=== PATIENT | male | born 1940 | race Caucasian/White ===

== ENCOUNTER 2020-10-29 08:54 | Outpatient (CLI) | payer OTHER, SELFPAY ==
--- NOTE | 2020-10-29 09:04 | ECHO_ITS ---
Patient Info Name: Luke Lawrence Age: 80 years : 1940 Gender: Male Ht: 66 in Wt: 190 lbs BSA: 2.03 m2 HR: 81 bpm BP: 128 / 73 mmHg Heart Rhythm: Sinus Rhythm Technical Quality: Fair Exam Date: 10/29/2020 9:17 AM Exam Location: [facility] Pulmonary Patient Status: Outpatient Admit Date: 10/29/2020 Staff Ordering Physician: Jani Buck APRN Train Master: Kathleen Castillo RDCS Attending Provider: Jani Buck APRN Exam Type: CA echo doppler color flow Study Info Indications R06.00 - Dyspnea, unspecified Complete two-dimensional, color flow and Doppler transthoracic echocardiogram is performed. Summary 1. Complete two-dimensional, color flow and Doppler transthoracic echocardiogram is performed. 2. Left ventricular chamber dimension is normal. 3. Left ventricular systolic function is normal, estimated at 55-60%. 4. The left ventricular diastolic function is grade I diastolic dysfunction. 5. E/e' 12 is mildly elevated. 6. There is moderate aortic valve sclerosis. 7. There is mild aortic valve regurgitation. 8. No pulmonary hypertension, estimated pulmonary arterial systolic pressure is 33 mmHg. Left Ventricle E/e' 12 is mildly elevated. Left ventricular chamber dimension is normal. Left ventricular systolic function is normal, estimated at 55-60%. The left ventricular diastolic function is grade I diastolic dysfunction. Right Ventricle Right ventricular chamber dimension is not well visualized. Left Atria Left atrial chamber dimension is normal. Right Atria Right atrial chamber dimension is normal. Aortic Valve The aortic valve is trileaflet. There is moderate aortic valve sclerosis. There is no aortic valve stenosis. There is mild aortic valve regurgitation. Pulmonic Valve There is no pulmonic regurgitation. Mitral Valve There is no mitral valve stenosis. There is no mitral valve regurgitation. Tricuspid Valve There is no tricuspid valve regurgitation. No pulmonary hypertension, estimated pulmonary arterial systolic pressure is 33 mmHg. Pericardium/Pleural There is no pericardial effusion. Inferior Vena Cava Normal inferior vena cava with >50% collapse upon inspiration consistent with normal right atrial pressure, 5 mmHg. Aorta The aortic root size at the sinus of Valsalva is normal. Left Ventricular Outflow Tract Name Value Normal LVOT 2D LVOT Diameter 1.9 cm LVOT Doppler LVOT Peak Gradient 3 mmHg LVOT Mean Gradient 2 mmHg LVOT VTI 20 cm LVOT VTI/AV VTI Ratio 0.6 LVOT Stroke Volume 56 ml LVOT CO 3.9 l/min LVOT CI 1.9 l/min/m2 Pulmonic Valve Name Value Normal RVOT Doppler RVOT P
== END 2020-10-29 08:55 | disposition home or self-care (01) ==
PROVIDERS: PCP Internal Medicine; Visit Provider Nurse Practitioner
DX: R06.00 Dyspnea, unspecified (principal); R60.9 Edema, unspecified; I35.1 Nonrheumatic aortic (valve) insufficiency
CPT/HCPCS: 93306

== ENCOUNTER 2022-04-24 10:07 | Outpatient (CLI) | payer OTHER, SELFPAY ==
--- NOTE | ~2022-04-24 | XR_ITS ---
XR thoracic spine 3V 04/24/2022 10:38 Indication: Chronic mid back pain. Procedure: 3 views of the thoracic spine Comparison: No prior studies for comparison. Findings: There is mild levocurvature of the thoracic spine. There are chronic healed right eighth an d ninth rib fractures. There is degenerative disc disease at most thoracic levels of the mid and lowe r thoracic spine. There are bridging osteophytes at multiple levels. There is atherosclerosis of the aorta. No acute fracture or traumatic malalignment. Impression: 1: Moderate thoracic spondylosis with levoscoliosis. Reviewed, dictated and finalized at location A. Impression: 1: Moderate thoracic spondylosis with levoscoliosis.
--- NOTE | ~2022-04-24 | XR_ITS ---
XR lumbar spine 2-3V 04/24/2022 10:38 Indication: Low back pain Procedure: 3 views of the lumbar spine Comparison: No prior studies for comparison. Findings: There is disc narrowing at all lumbar levels. There are prominent marginal osteophytes at m ost levels. There is facet hypertrophy at L5-S1. No acute fracture or traumatic malalignment. There i s atherosclerosis of the aorta. There are calcifications in the left abdomen, possibly renal stones. Osteopenia. Impression: 1: Moderate-severe lumbar spondylosis. 2: Possible left nephrolithiasis. Reviewed, dictated and finalized at location A. Impression: 1: Moderate-severe lumbar spondylosis. 2: Possible left nephrolithiasis.
== END 2022-04-24 10:08 | disposition home or self-care (01) ==
PROVIDERS: PCP Internal Medicine; Visit Provider Internal Medicine
DX: M47.894 Other spondylosis, thoracic region (principal); M47.896 Other spondylosis, lumbar region
CPT/HCPCS: 72072; 72100

== ENCOUNTER → 2022-06-30 15:46 | Outpatient (CLI) | payer OTHER, SELFPAY ==
--- NOTE | ~2022-06-30 | XR_ITS ---
EXAMINATION: XR chest 2V 06/30/2022 16:11 INDICATION: Cough PROCEDURE: 2 view chest COMPARISON: 12/30/2018 FINDINGS: The lungs are clear. The cardiomediastinal silhouette is within normal limits. There are no pleural effusions. There is no pneumothorax suspected. There are calcified granulomas in the rig ht mid and lower thorax. There are healed right lower rib fractures. IMPRESSION: 1: NO ACUTE CARDIOPULMONARY DISEASE. Reviewed, dictated and finalized at location A. OFF WORKER
== END ==
PROVIDERS: PCP Internal Medicine; Visit Provider Internal Medicine
DX: R05.9 Cough, unspecified (principal)
CPT/HCPCS: 71046

== ENCOUNTER 2022-12-02 14:40 | Inpatient (IN) | payer OTHER, SELFPAY ==
[2022-12-02] VITALS (9 sets, daily range): BP systolic 95–127; BP diastolic 42–61; PULSE 51–98; RESP 16–20; TEMP 36.1–36.7; O2SAT 91–100
--- NOTE | ~2022-12-02 | XR_ITS ---
Portable chest x-ray Comparison: 06/30/2022 Clinical History: STEMI Findings: Lungs are clear, without focal consolidation or pleural effusion. Cardiomediastinal silho uette is stable. Bones and soft tissues are unremarkable. Impression: Clear lungs. Reviewed, dictated and finalized at location . Impression: Clear lungs.
--- NOTE | ~2022-12-02 | US_ITS ---
EXAMINATION: US venous doppler [facility] DATE: 12/03/2022 16:52 INDICATION: HISTORY OF DVT . TECHNIQUE: Grayscale images without and with compression and Doppler images of the bilateral lower ex tremity veins were obtained. COMPARISON: 12/19/2018 FINDINGS: Chronic-appearing nonocclusive filling defects in the right profunda femoral, superficial femoral, an d popliteal veins. The right common femoral vein, peroneal vein, posterior tibial veins, gastrocnemiu s vein, and greater saphenous vein are patent. Chronic appearing nonocclusive filling defects in the left common femoral, profunda femoral, and supe rficial femoral veins. The left popliteal vein, peroneal vein, posterior tibial veins, gastrocnemius vein, and greater saphenous vein are patent. IMPRESSION: 1. Chronic appearing nonocclusive deep venous thrombi in the bilateral lower extremities, as detaile d above. 2. No evidence of acute deep venous thrombosis. Reviewed, dictated and finalized at location K. IMPRESSION: 1. Chronic appearing nonocclusive deep venous thrombi in the bilateral lower e xtremities, as detailed above. 2. No evidence of acute deep venous thrombosis.
--- NOTE | 2022-12-02 14:48 | ECG_ITS ---
Measurements Intervals [place] Rate: 49 P: MO: 0 QRS: 96 QRSD: 170 T: 44 QT: 476 QTc: 433 Interpretive Statements JUNCTIONAL ESCAPE RHYTHM RIGHT BUNDLE BRANCH BLOCK INFERIOR ST ELEVATION MYOCARDIAL INFARCT- ACUTE CONSIDER POSTERIOR INFARCT- ACUTE ABNORMAL ECG NO PREVIOUS ECG AVAILABLE FOR COMPARISON Electronically Signed On 12-02-2022 15:50:56 CDT by Anthony Floyd D.O.
[2022-12-02 15:19] LABS: Basophils Absolute Auto 0.1 K/mm3 (0.0-0.1); Basophils Percent Auto 0.8 % (0.2-1.2); Eosinophils Percent Auto 0.3 % (0-4.4); Hematocrit 45.9 % (42.0-52.0); Hemoglobin 14.6 g/dL (14.0-18.0); Immature Granulocyte Absolute 0.06 K/mm3 (0.00-0.031); Immature Granulocyte Percent A 0.5 % (0-0.5); Lymphocytes Absolute Auto 2.57 K/mm3 (0.9-3.2); Lymphocytes Percent Auto 21.5 % (18.3-44.2); Mean Corpuscular HGB Conc 31.8 g/dl (32-36); Mean Corpuscular Hemoglobin 27.3 pg (26-34); Monocytes Absolute Auto 0.8 K/mm3 (0.1-0.6); Neutrophils Absolute Auto 8.4 K/mm3 (1.3-6.7); Neutrophils Percent Auto 69.9 % (45.5-73.1); Platelet Count Result 323 k/mm3 (150-375); Red Blood Count 5.34 M/mm3 (4.6-6.20); Red Cell Distribution Width 13.5 % (11.5-14.5)
--- NOTE | 2022-12-02 15:22 | ED.WEAKNESS ---
HPI - Weakness General Chief complaint: Weakness Stated complaint: weakness Time Seen by Provider: 12/02/22 14:48 History of Present Illness HPI Narrative: Patient here with daughter, this morning he had been feeling out of sorts and woozy, with some chest pain/pressure to his left chest. He was hoping that it would go away, but he was still uncomfortable in the afternoon, and called his daughter. She told him to stay on the phone until she got there, and when she arrived, she noted that he had been unable to get to the bathroom on time, and was extremely diaphoretic patient currently is still endorsing chest discomfort and dizziness, wanting to pass out. History of hypertension and diabetes, blood clots on warfarin. Related Data Allergies Allergy/AdvReac Type Severity Reaction Status Date / Time No Known Allergies Allergy Verified 09/22/22 12:48 Review of Systems Review of Systems: CONST: Generalized weakness HEENT: No sore throat C/V: chest pain RESP: Some difficulty breathing GI: Some mild nausea but no abdominal pain : No dysuria. M/S: No joint pain. SKIN: No rash. NEURO: Lightheaded PSYCH: [No depression] [facility] Past Medical History Medical History (Updated 12/02/22 @ 15:44 by Irma Lee MD) Body mass index (bmi) 29.0-29.9, adult Deep vein thrombophlebitis of lower leg Deep vein thrombosis Diabetes type 2, controlled Nephrolithiasis SOB (shortness of breath) Family History Family History Sibling Acute myocardial infarction Family history of malignant neoplasm Patient's brother is in good health Father Family history unknown Mother Family history unknown Other Acute myocardial infarction Social History Social History Smoking status: Former smoker Smoking end date: 08/02/77 Alcohol intake: never Substance use: never Substance use type: does not use Lack of Transportation: No Lack of Food: Never True Current Housing: I Have Housing Concerned About Future Housing: No Difficulty Paying Gas/Electric Bills: No Difficulty Paying for Meds: No Currently Unemployed: No Education: High School Diploma/GED Difficulty w/ Childcare or Family Care: No Exam Narrative: EXAMINATION OF ORGAN SYSTEMS/BODY AREAS: Constitutional: Vital signs per nursing GENERAL: Appears extremely sleepy HEAD: Normal with no signs of head trauma. EYES: EOMI, conjunctiva normal ENT: Speaking slowly and not clearly LUNGS: Nonlabored breathing. HEART: Slightly bradycardic ABD: [Soft], [nontender to palpation] EXT: Normal range of motion SKIN: [No rashes or lesions.] NEURO: [Alert and oriented x 3. No gross focal sensory or strength deficits. NIHSS 0] PSYCH: Slow, tired affect Course Vital Signs Vital signs: Vital Signs Temperature 97 F L 12/02/22 15:04 Pulse Rate 51 L 12/02/22 15:04 Respiratory Rate 18 12/02/22 15:04 Blood Pressure 114/52 L 12/02/22 15:04 Pulse Oximetry 92 12/02/22 15:04 Oxygen Delivery Room Air 12/02/22 15:04 Temperature 97 F L 12/02/22 15:04 Pulse Rate 51 L 12/02/22 15:04 Respiratory Rate 18 12/02/22 15:04 Blood Pressure 114/52 L 12/02/22 15:04 Pulse Oximetry 92 12/02/22 15:04 Oxygen Delivery Room Air 12/02/22 15:04 MDM - Weakness MDM Narrative Medical decision making narrative: ED COURSE AND MEDICAL DECISION MAKIN-year-old male presenting with generalized weakness, presyncope, chest pain. My differential includes infection, cardiac abnormality including arrhythmias or ACS, CVA or dissection. Exam here notable for tired appearing patient who seemed to be slurring his speech slightly vs just be very tired, NIH stroke scale is 0 otherwise. EKG: Performed at 1501 and interpreted by me. ESTHER in inferior leads with reciprocal changes, rate 49. Right axis. MA n/a. QRS duration normal. QTc normal. Legislative Director immed
[2022-12-02 15:29] LABS: Albumin Level 4.4 g/dL (3.5-5.1); Alkaline Phosphatase 70 U/L (38-126); Anion Gap 11 mmol/L (8-16); Aspartate Amino Transferase 28 U/L (17-59); Bilirubin,Total 0.4 mg/dL (0.2-1.3); Blood Urea Nitrogen 16 mg/dL (9-20); Calcium 9.5 mg/dL (8.4-10.2); Carbon Dioxide 26 mmol/L (22-30); Chloride 99 mmol/L (98-107); Cholesterol 182 mg/dL (0-200); Estimated CRCL calculation 38 ml/min; Estimated Glomerular Filt Rate 48; Glucose 198 mg/dL (65-110); HDL Direct 49 mg/dL; Partial Thromboplastin Time 33.1 SECONDS (22.3-36.8); Potassium 3.5 mmol/L (3.4-5.0); Sodium 136 mmol/L (137-145); Triglycerides 133 mg/dL (<150)
[2022-12-02 15:32] LABS: INR 1.6; Prothrombin Time 20.4 Seconds (11.1-14.7)
[2022-12-02] MEDS: SODIUM CHLORIDE 0.9% IV 1,000 ML 30 ML IV CONT (15:32)
[2022-12-02 15:40] LABS: Alanine Aminotransferase 42 U/L (6-50)
[2022-12-02 15:42] LABS: LDL Cholesterol Direct 104 mg/dL
[2022-12-02 15:45] LABS: Troponin I 0.029 ng/mL (0.000-0.034)
--- NOTE | 2022-12-02 16:27 | PM.IMHP ---
H&P: HPI History of Present Illness Date/Time: 12/02/22 16:27 Chief Complaint: Chest pain for approximately 12 hours Narrative: 82-year-old male with past medical history of hypertension, type 2 diabetes mellitus, history of DVT on anticoagulation with warfarin. Patient presented to [facility] Emergency Room with complaints of chest pain that started about 12 hours ago. His symptoms were associated with mild shortness of breath and an episode of dizziness. present EKG which I personally evaluated showed junctional rhythm, heart rate 49 beats per minute, ST elevation in the inferior leads with reciprocal ST depression. Patient was emergently taken to the cardiac catheterization lab and coronary angiogram showed 100% occlusion of proximal RCA -infarct related vessel. He underwent primary PCI/ CONCETTA x2 proximal-mid RCA. Left coronary angiogram showed 60-70% stenosis in the mid LAD; and 70-80% stenosis in the proximal -mid LCX. Left ventriculogram showed hyperdynamic LV systolic function. Patient was hypotensive in the golf course laborer, and was initiated on IV fluid and dopamine. He was chest pain-free after completion of PCI. Review of Systems Review of Systems: General: Negative for fever, chills, fatigue Psychological: Negative for anxiety, depression Ophthalmic: negative for loss of vision ENT: Negative for epistaxis, headaches Allergy and immunology: Negative for hives, nasal congestion Hematologic and lymphatic: Negative for overt bleeding problems Endocrine: Negative for hot flashes, palpitations Respiratory: Positive for shortness of breath Cardiovascular: positive for chest pain, presyncope Gastrointestinal: Negative for abdominal pain, nausea, vomiting, hematochezia Musculoskeletal: Negative for myalgia, joint pains Neurological: Negative for weakness Dermatological: Negative for rash, skin discoloration REPLACED BY [facility] Past Medical History Medical History (Updated 12/02/22 @ 15:44 by Irma Lee MD) Body mass index (bmi) 29.0-29.9, adult Deep vein thrombophlebitis of lower leg Deep vein thrombosis Diabetes type 2, controlled Nephrolithiasis SOB (shortness of breath) Family History Family History Sibling Acute myocardial infarction Family history of malignant neoplasm Patient's brother is in good health Father Family history unknown Mother Family history unknown Other Acute myocardial infarction Social History Social History Smoking status: Former smoker Smoking end date: 08/02/77 Alcohol intake: never Substance use: never Substance use type: does not use Lack of Transportation: No Lack of Food: Never True Current Housing: I Have Housing Concerned About Future Housing: No Difficulty Paying Gas/Electric Bills: No Difficulty Paying for Meds: No Currently Unemployed: No Education: High School Diploma/GED Difficulty w/ Childcare or Family Care: No Meds Home Medications and Allergies Home Medications Medication Instructions Recorded Confirmed Type amlodipine 10 mg tablet 10 mg PO DAILY #90 tabs 06/19/22 09/08/22 Rx hydrochlorothiazide 12.5 mg tablet 12.5 mg PO DAILY #90 tabs 09/08/22 09/08/22 Rx metformin 500 mg tablet 500 mg PO BID #180 tabs 09/08/22 09/08/22 Rx warfarin 5 mg tablet See Rx Instructions .Route 10/26/22 Rx .COMPLEX #45 tabs lisinopril 20 mg tablet See Rx Instructions .Route 11/04/22 Rx .COMPLEX #180 tabs Allergies Allergy/AdvReac Type Severity Reaction Status Date / Time No Known Allergies Allergy Verified 09/22/22 12:48 Vital Signs Vital Signs - 24 hr 12/02/22 15:04 12/02/22 15:30 Temperature 36.1 C L Pulse Rate 51 L 52 L Respiratory Rate 18 16 Blood Pressure 114/52 L 95/42 L Pulse Oximetry 92 93 Oxygen Delivery Room Air Exam Narrative: PHYSICAL EXAMINATION: GENERAL: Alert, oriented, mild distr
--- NOTE | 2022-12-02 16:37 | WPDCARDPROC ---
Cardiac Cath Procedure Note Date of procedure:: 12/02/22 Performing physician:: Gonzalo Pennington MD Procedure Procedure note:: CARDIAC CATHETERIZATION AND PERCUTANEOUS CORONARY INTERVENTION REPORT DATE OF PROCEDURE: 12/02/2022 INDICATION FOR PROCEDURE: acute coronary syndrome-inferior ST-elevation myocardial infarction BRIEF CLINICAL HISTORY:82-year-old male with past medical history of hypertension, type 2 diabetes mellitus, history of DVT on anticoagulation with warfarin. Patient presented to [facility] Emergency Room with complaints of chest pain that started about 12 hours ago.? His symptoms were associated with mild shortness of breath and an episode of dizziness. ? present EKG which I personally evaluated showed junctional rhythm, heart rate 49 beats per minute, ST elevation in the inferior leads with reciprocal ST depression.? Patient was emergently taken to the cardiac catheterization lab. PROCEDURES PERFORMED: 1. Left heart catheterization- Selective left and right coronary angiogram; left ventriculogram and hemodynamic assessment 2. Percutaneous coronary intervention- 1) balloon angioplasty and stenting of totally occluded proximal -mid RCA using 2 resolute juan diego zotarolimus eluting stents ( 4.0 x 34 mm, 3.5 x 12 mm) in an overlapping fashion with orthodoxy of flow; 2) intravascular ultrasound -IVUS of proximal-mid RCA 3. Deployment of Mynx vascular closure device 4. Moderate sedation-CPT code 28288 MODERATE SEDATION: Midazolam 1 mg; fentanyl 25 mcg. Start time 1542 , Stop time 1619 ; Total [id number] time 37 minutes; RN was trained observer for moderate sedation. ACCESS SITE: Right common femoral artery PROCEDURE NOTE: Patient was emergently brought to catheterization lab and prepped and draped in a usual sterile manner. After local anesthesia with lidocaine, right common femoral artery access was taken with micropuncture needle followed by insertion of a 6 Malagasy sheath. Selective left and right coronary angiogram was performed using 5 Malagasy JL4 diagnostic and JR4 guide catheters respectively. Orthogonal views were taken. After completion of PCI, a 5 Malagasy pigtail catheter was advanced in the LV cavity and was flushed with normal saline. LV pressure measurement was performed. After this, left ventriculogram was performed. The catheter was flushed again, and gradient across the aortic valve was measured on the pullback of the catheter. FINDINGS: LEFT MAIN CORONARY: large caliber, short vessel, mild narrowing in the mid segment. The vessel trifurcates into LAD, ramus intermedius and left circumflex branches. LEFT ANTERIOR DESCENDING ARTERY: Medium caliber vessel, about 60-70% stenosis seen in the mid segment. The vessel tapers distally and reaches LV apex. Major diagonal branch is a medium caliber vessel with mild narrowing in the proximal segment. RAMUS INTERMEDIUS: Medium caliber vessel, mild plaque in the proximal segment. LEFT CIRCUMFLEX ARTERY: Medium caliber vessel, about 70-80% stenosis in the proximal-mid segment. The vessel continues as OM branch. RIGHT CORONARY ARTERY: Large caliber vessel, 100% thrombotic occlusion in the proximal segment-infarct related vessel. Mild diffuse plaque is seen in the remainder of the mid and distal segment. The vessel gives rise to medium-sized PDA branch and smaller caliber PLV branch. LEFT VENTRICULOGRAM: Frequent ventricular ectopy was seen during left ventriculogram, ejection fraction more than 70%. LVEDP 14 mmHg. HEMODYNAMIC ASSESSMENT: Opening pressure 90/40 mmHg , closing pressure 72/33 mmHg , LVEDP mmHg 14 mmHg; no significant gradient across aortic valve on the pullback of pigtail catheter. INTERVENTION REPORT: RCA ostium was selectively engaged using 6 Malagasy JR4 guide catheter. Patient received aspirin and loading dose of ticagrelor in the laborer high density press. Bivalirudin was used for personal and evaluation. The 100% occlusion in the
[2022-12-02] MEDS: SODIUM CHLORIDE 0.9% IV 1,000 ML 125 ML IV CONT (17:44)
[2022-12-02] MEDS: PANTOPRAZOLE SODIUM IV 40 MG VIAL IV PUSH (18:35)
[2022-12-02] MEDS: ASPIRIN 81 MG CHEWABLE TABLET PO (18:35)
[2022-12-02] MEDS: TICAGRELOR 90 MG TABLET 180 MG PO (18:35)
[2022-12-02 19:08] LABS: Appearance Urine Clear (Clear); Bacteria Urine None Seen /hpf; Bilirubin Urine Negative (Negative); Blood Urine 3+ (Negative); Color Urine Yellow (Yellow); Glucose Urine UA Trace mg/dL (Negative); Ketones Urine Negative (Negative); Leukocyte Esterase Ur Negative LEU/UL (Negative); Nitrate Urine Negative (Negative); Non Pathogenic Casts 0-2; Protein Urine Negative (Negative); RBC Urine >100 /hpf (0-2); Specific Grav Ur 1.014 (1.001-1.035); Squamous Epithelial Cell Urine None seen /hpf (Few); WBC Urine 0-5 /hpf
[2022-12-02 19:09] LABS: Add Urine Microscopic? YES
--- NOTE | 2022-12-02 22:00 | ADMGEN ---
This patient, Luke Lawrence, was admitted to Intensive Care Unit-6 on 12/02/22 at 1645. Patient/family oriented to hospital policies and general routines including ID bracelet, bed and alarms, visiting hours, pain management, procedures, bathroom and other care routines, personal items, smoking policy, room service/diet, and visiting hours. Information on how to activate the Rapid Response Team has been discussed. Patient/Family are encouraged to report perceived risks to care and to ask questions if they do not understand what they are told or what they should do.
[2022-12-03] VITALS (15 sets, daily range): BP systolic 79–130; BP diastolic 50–107; PULSE 72–101; RESP 18–23; TEMP 36.4–36.8; O2SAT 91–98
--- NOTE | 2022-12-03 | ECHO_ITS ---
Patient Info Name: Luke Lawrence Age: 82 years : 1940 Gender: Male Ht: 71 in Wt: 184 lbs BSA: 2.05 m2 HR: 110 bpm BP: 110 / 64 mmHg Heart Rhythm: Sinus Rhythm Technical Quality: Poor Exam Date: 12/03/2022 2:16 PM Exam Location: [facility] Pulmonary Patient Status: Inpatient Admit Date: 12/02/2022 Staff Ordering Physician: Valencia Law MD (aleah/ann) Grit Blaster: Adriane Gustafson RDCS Attending Provider: Valencia Law MD (aleah/ann) Referring Physician: Thanh ANN; Exam Type: CA echo dop color flow w con Study Info Indications - S/P STEMI Complete two-dimensional, color flow and Doppler transthoracic echocardiogram is performed with contrast to opacify the left ventricle and to improve the deliniation of the left ventricle endocardial borders. Contrast/Agitated Saline Contrast/Ag. Saline: Definity Amount: 2.00 ml Administered By: Adriane Gustafson [facility] Existing IV Access: Yes IV Access Condition: patent with no signs of infiltration Reason for Poor Study: poor echocardiographic windows Summary 1. Technically difficult study with limited views. 2. Left ventricular chamber dimension is normal. 3. Left ventricular systolic function is normal, estimated at 60-65%. 4. The left ventricular diastolic function is grade I diastolic dysfunction. 5. There is moderate aortic valve calcification. 6. The mitral valve annulus is severely calcified. 7. There is mild mitral valve regurgitation. Left Ventricle Left ventricular chamber dimension is normal. Left ventricular systolic function is normal, estimated at 60-65%. There is no increased left ventricular wall thickness. The left ventricular diastolic function is grade I diastolic dysfunction. Right Ventricle Right ventricular chamber dimension is not well visualized. Left Atria Left atrial chamber dimension is not well visualized. Right Atria Right atrial chamber dimension is not well visualized. Aortic Valve The aortic valve is not well visualized. There is no aortic valve stenosis. There is no aortic valve regurgitation. There is moderate aortic valve calcification. Pulmonic Valve The pulmonic valve is not well visualized. Mitral Valve There is mild mitral valve regurgitation. The mitral valve annulus is severely calcified. Tricuspid Valve There is trace tricuspid valve regurgitation. Pericardium/Pleural There is trivial pericardial effusion. Aorta The aortic root size at the sinus of Valsalva is normal. Left Ventricular Outflow Tract Name Value Normal LVOT 2D LVOT Diameter 1.99 cm LVOT Doppler LVOT Peak Gradient 5 mmHg LVOT Mean Gradient 4 mmHg LVOT VTI 23.73 cm LVOT VTI/AV VTI Ratio 0.77 LVOT Stroke Volume 73.60 ml LVOT CO 17.45 l/min LVOT CI 8.49 L/min/m2 Pulmonic Valve Name Value Normal
--- NOTE | 2022-12-03 00:48 | PC.NURSE ---
1900 Dopamine at 10mcg/kg blood pressure WNL 2315 Dopamine at 5mcg/kg blood pressure WNL 0045 Dopamine off - blood pressure remains WNL
[2022-12-03] MEDS: DOPamine 400 MG/D5W 250 ML 400 MG/250 ML BAG 15.73 MG IV CONT (01:32)
[2022-12-03 04:39] LABS: Basophils Percent Auto 0.2 % (0.2-1.2); Eosinophils Percent Auto 0.1 % (0-4.4); Hematocrit 44.1 % (42.0-52.0); Hemoglobin 13.9 g/dL (14.0-18.0); Immature Granulocyte Absolute 0.03 K/mm3 (0.00-0.031); Immature Granulocyte Percent A 0.2 % (0-0.5); Immature Platelet Fraction Pct 1.9 % (0.9-11.2); Lymphocytes Absolute Auto 1.48 K/mm3 (0.9-3.2); Lymphocytes Percent Auto 11.3 % (18.3-44.2); Mean Corpuscular HGB Conc 31.5 g/dl (32-36); Mean Corpuscular Hemoglobin 27.2 pg (26-34); Mean Corpuscular Volume 86.3 fl (80-100); Mean Platelet Volume 8.8 fl (7.4-10.4); Monocytes Absolute Auto 1.1 K/mm3 (0.1-0.6); Neutrophils Absolute Auto 10.5 K/mm3 (1.3-6.7); Neutrophils Percent Auto 80.2 % (45.5-73.1); Platelet Count Result 258 k/mm3 (150-375); Red Blood Count 5.11 M/mm3 (4.6-6.20); Red Cell Distribution Width 13.6 % (11.5-14.5); White Blood Count 13.1 K/mm3 (4.5-10.0)
[2022-12-03 05:24] LABS: Platelet Estimate Adequate (Adequate)
[2022-12-03 05:25] LABS: Schistocytes None Seen (NORMAL)
[2022-12-03 08:14] LABS: Glucose Point of Care 181 mg/dl (65-105)
[2022-12-03] MEDS: ATORVASTATIN 40 MG TABLET 80 MG PO (08:16)
[2022-12-03] MEDS: TICAGRELOR 90 MG TABLET PO ×2 (08:16→20:40)
[2022-12-03] MEDS: ASPIRIN 81 MG ENTERIC TABLET PO (08:34)
[2022-12-03] MEDS: hetaSTARCH 6%/NACL 500 ML 250 ML IV CONT (09:06)
--- NOTE | 2022-12-03 11:16 | ECG_ITS ---
Measurements Intervals [place] Rate: 85 P: 70 HI: 149 QRS: 66 QRSD: 142 T: -20 QT: 410 QTc: 489 Interpretive Statements SINUS RHYTHM RIGHT BUNDLE BRANCH BLOCK ABNORMAL ECG COMPARED TO ECG 12/02/2022 15:01:19 SINUS RHYTHM NOW PRESENT Electronically Signed On 12-03-2022 15:07:19 CDT by Anthony Floyd D.O.
[2022-12-03 12:02] LABS: Glucose Point of Care 191 mg/dl (65-105)
--- NOTE | 2022-12-03 12:08 | PM.PNCARD ---
Progress Note: A&P Assessment and Plan (1) ST elevation (STEMI) myocardial infarction: Code(s): I21.3 - ST elevation (STEMI) myocardial infarction of unspecified site Status: Acute Assessment and Plan: 82-year-old male with past medical history of hypertension, type 2 diabetes mellitus, history of DVT on anticoagulation with warfarin. Patient presented with inferior NC. He is status post primary PCI / CONCETTA times 2 with methodist of flow in the RCA. Dual antiplatelet therapy with aspirin and ticagrelor. High-dose statin Initially required Dopamine upon presentation due to junctional bradycardia, however, now in sinus rhythm. Will stop Dopamine and monitor rhythm closely on tele. If he remains in sinus, will plan to start low-dose beta ramin. Patient has significant disease in the mid LAD and proximal-mid LCX, which can be intervened in a staged fashion in near future. Will have patient follow up with Dr. Pennington. Patient tells me that he had previously tried Xarelto in the past instead of Warfarin, but NOACs are too expensive for him, and therefore, he was put back on Warfarin. He states he was told he should not stop his anticoagulation and should remain on it long-term. Given this, will plan to keep patient on ASA + Brilinta + Warfarin for 1 month. After 1 month, drop the ASA, and continue with Brilinta and Warfarin. Echo is pending. Referral for cardiac rehab placed. (2) Chronic anticoagulation: Code(s): Z79.01 - ferry terminal supervisor (current) use of anticoagulants Status: Acute Assessment and Plan: Patient tells me that he had previously tried Xarelto in the past instead of Warfarin, but NOACs are too expensive for him, and therefore, he was put back on Warfarin. He states he was told he should not stop his anticoagulation and should remain on it long-term. Given this, will plan to keep patient on ASA + Brilinta + Warfarin for 1 month. After 1 month, drop the ASA, and continue with Brilinta and Warfarin. (3) Essential hypertension: Code(s): I10 - Essential (primary) hypertension Status: Acute Assessment and Plan: Cr 1.4 on presentation, will hold his HCTZ and Lisinopril for now and monitor his renal function. Restart Amlodipine. Subjective Date/time seen: 12/03/22 12:08 Interval history: Reason for visit: Acute inferior STEMI HPI: 82-year-old male with past medical history of hypertension, type 2 diabetes mellitus, history of DVT on anticoagulation with warfarin. Patient presented to [facility] Emergency Room with complaints of chest pain that started about 12 hours ago.? His symptoms were associated with mild shortness of breath and an episode of dizziness. ? present EKG which I personally evaluated showed junctional rhythm, heart rate 49 beats per minute, ST elevation in the inferior leads with reciprocal ST depression.? Patient was emergently taken to the cardiac catheterization lab and coronary angiogram showed 100% occlusion of proximal RCA -infarct related vessel.? He underwent primary PCI/ CONCETTA x2 proximal-mid RCA.? Left coronary angiogram showed? 60-70% stenosis in the mid LAD; and 70-80% stenosis in the proximal -mid LCX.? Left ventriculogram showed hyperdynamic LV systolic function.? Patient was hypotensive in the rn labor and delivery, and was initiated on IV fluid and dopamine.? He was chest pain-free after completion of PCI. Date of service 12/03: No acute events overnight. On 2.5 of Dopamine, in sinus rhythm on tele with HR in the 80s-90s. No chest pain or shortness of breath. Per the RN, patient likes to keep nasal cannula on because it makes him feel better, but he does not desat or become short of breath when they take it off of him. Review of Systems Review of Systems: 8 point ROS obtained. Negative, unless stated in HPI. Exam Const: General: comfortable and no acute distress HENMT: Mouth: Yes moist mucous membranes Eyes: General: appearance normal, both eyes and all
--- NOTE | 2022-12-03 13:59 | WPDCNINT ---
Assessment and Plan Assessment and plan (1) ST elevation (STEMI) myocardial infarction: Code(s): I21.3 - ST elevation (STEMI) myocardial infarction of unspecified site Status: Acute Assessment and Plan: Patient presented with chest pain/pressure on the left side. Associated with diaphoresis, dizziness, shortness of breath and presyncope. -EKG in the ER showed ST-elevation in inferior leads, code STEMI was activated and patient was taken to the analytical lab technician: status post PTCA/PCI with CONCETTA x2 to mid RCA and XI-, EF of 70%, any EDP was 14 mmHg, in the analytical lab technician patient was hypotensive and was started on dopamine. Patient also has 60-70% stenosis of LAD, 70-80% stenosis of left circumflex artery. Patient was transferred to the ICU on dopamine for hypotension. -continue aspirin, ticagrelor, statin -patient has been off dopamine as he is in sinus rhythm with adequate blood pressures -cardiology following, if he remains in sinus rhythm, cardiology will start low-dose beta-ramin (2) Acute deep vein thrombosis (DVT): Qualifiers: DVT location: lower extremity Affected thrombotic vein of extremity: unspecified vein of extremity Laterality: unspecified laterality Qualified Code(s): I82.409 - Acute embolism and thrombosis of unspecified deep veins of unspecified lower extremity Code(s): I82.409 - Acute embolism and thrombosis of unspecified deep veins of unspecified lower extremity Status: Acute Assessment and Plan: Patient with history of left lower extremity DVT, per cardiology report you mention to the Cardiology then he should remain on Coumadin for long-term and he was to not to stop his anticoagulation. -repeat lower extremity venous Dopplers (3) Chronic anticoagulation: Code(s): Z79.01 - terminal computer operator (current) use of anticoagulants Status: Acute Assessment and Plan: Patient has been on Coumadin for left lower extremity DVT -INR was 1.6 on admission, he has been restarted on Coumadin by Cardiology (4) Essential hypertension: Code(s): I10 - Essential (primary) hypertension Status: Acute Assessment and Plan: Blood pressures were initially low requiring dopamine -this morning blood pressure is better and dopamine has been discontinued -amlodipine has been ordered by Cardiology, I placed holding parameters (5) Type 2 diabetes mellitus without complication, without long-term current use of insulin: Code(s): E11.9 - Type 2 diabetes mellitus without complications Status: Acute Assessment and Plan: Will add Accu-Cheks and sliding scale insulin Plan DVT prophylaxis: Warfarin Stress ulcer prophylaxis: Not indicated Nutrition: On healthy diet Code Status: Full code Critical Care Time Spent: 49 minutes Due to a high probability of clinically significant, life threatening deterioration, the patient required my highest level of preparedness to intervene emergently and I personally spent this critical care time directly and personally managing the patient. This critical care time included obtaining a history; examining the patient; pulse oximetry; ordering and review of studies; arranging urgent treatment with development of a management plan; evaluation of patient's response to treatment; frequent reassessment; and discussions with other providers. It was exclusive of separately billable procedures and treating other patients and teaching time. Please see Assessment and Plan section and the rest of the note for further information on patient assessment and treatment This dictation may have been done utilizing a voice recognition system. Attempts have been made to correct errors. However, there may be uncorrected grammatical, spelling, and recognitions errors present. Paint Process Engineer Consult Note Consult date: 12/03/22 Reason for consult: STEMI status post PTCA/PCI with CONCETTA x2 to mid RCA in overlapping fashion. EF 70%, LVEDP 14 mmHg, shock HPI: Luke Garibay
[2022-12-03] MEDS: PERFLUTREN LIPID MICROSPHERES 1.5 ML VIAL DILUTED TO 10 ML TOTAL VOLUME IV PUSH (14:45)
[2022-12-03] MEDS: amLODIPine BESYLATE 5 MG TABLET 10 MG PO (16:58)
[2022-12-03 16:59] LABS: Glucose Point of Care 145 mg/dl (65-105)
[2022-12-03] MEDS: WARFARIN (*PBKC) 2.5 MG TABLET PO (16:59)
--- NOTE | 2022-12-03 18:22 | PC.NURSE ---
This patient, Luke Lawrence, was transferred to [[id number]] on 12/03/22 at 1845. Personal belongings sent with patient. Report given to [Demi Del Castillo RN]. Appropriate documentation sent with patient. Pt. stable upon transfer.
--- NOTE | 2022-12-03 18:23 | PC.NURSE ---
This patient, Luke Lawrence, was transferred to [ ] on 12/03/22 at 1844. Personal belongings sent with patient. Report given to [ ]. Appropriate documentation sent with patient.
--- NOTE | 2022-12-03 19:25 | PC.NURSE ---
This patient, Luke Lawrence, was received from [ ICU 6] on 12/03/22 at 1823 . Patient/family oriented to unit policies and routines
[2022-12-03 20:22] LABS: Glucose Point of Care 152 mg/dl (65-105)
[2022-12-04] VITALS: BP 124/60; PULSE 86; PULSE 90; RESP 18; TEMP 36.5; O2SAT 92
[2022-12-04 02:00] VITALS: PULSE 85
[2022-12-04 04:00] VITALS: BP 133/57; PULSE 90; PULSE 91; RESP 18; TEMP 36.5; O2SAT 92; O2SAT 93
[2022-12-04 05:23] LABS: Basophils Percent Auto 0.4 % (0.2-1.2); Eosinophils Percent Auto 0.4 % (0-4.4); Hematocrit 39.4 % (42.0-52.0); Hemoglobin 12.7 g/dL (14.0-18.0); Immature Granulocyte Absolute 0.05 K/mm3 (0.00-0.031); Immature Granulocyte Percent A 0.5 % (0-0.5); Lymphocytes Absolute Auto 1.56 K/mm3 (0.9-3.2); Lymphocytes Percent Auto 15.6 % (18.3-44.2); Mean Corpuscular HGB Conc 32.2 g/dl (32-36); Mean Corpuscular Hemoglobin 27.4 pg (26-34); Mean Corpuscular Volume 84.9 fl (80-100); Mean Platelet Volume 9.4 fl (7.4-10.4); Monocytes Absolute Auto 1.1 K/mm3 (0.1-0.6); Monocytes Percent Auto 11.3 % (2.6-8.5); Neutrophils Absolute Auto 7.2 K/mm3 (1.3-6.7); Neutrophils Percent Auto 71.8 % (45.5-73.1); Platelet Count Result 241 k/mm3 (150-375); Red Blood Count 4.64 M/mm3 (4.6-6.20); Red Cell Distribution Width 13.8 % (11.5-14.5)
[2022-12-04 05:35] LABS: Alanine Aminotransferase 37 U/L (6-50); Albumin Level 3.4 g/dL (3.5-5.1); Alkaline Phosphatase 52 U/L (38-126); Anion Gap 7 mmol/L (8-16); Aspartate Amino Transferase 75 U/L (17-59); Bilirubin,Total 0.7 mg/dL (0.2-1.3); Blood Urea Nitrogen 13 mg/dL (9-20); Calcium 8.6 mg/dL (8.4-10.2); Carbon Dioxide 25 mmol/L (22-30); Chloride 103 mmol/L (98-107); Estimated CRCL calculation 52 ml/min; Estimated Glomerular Filt Rate > 60; Glucose 183 mg/dL (65-110); Magnesium 1.8 mg/dL (1.6-2.3); Phosphorus 1.7 mg/dL (2.5-4.5); Potassium 3.9 mmol/L (3.4-5.0); Sodium 135 mmol/L (137-145)
[2022-12-04 06:00] VITALS: PULSE 78
[2022-12-04 07:39] LABS: Glucose Point of Care 156 mg/dl (65-105)
[2022-12-04 08:00] VITALS: PULSE 103
[2022-12-04 08:08] VITALS: BP 111/61; PULSE 90; RESP 20; TEMP 36.3; O2SAT 94
--- NOTE | 2022-12-04 09:01 | PM.DS ---
DS: Admitting Diagnosis Discharge Date 12/04/2022 Admitting Diagnosis STEMI DS: Discharge Diagnosis Discharge Diagnosis (1) ST elevation (STEMI) myocardial infarction: Code(s): I21.3 - ST elevation (STEMI) myocardial infarction of unspecified site Status: Acute (2) Chronic anticoagulation: Code(s): Z79.01 - exterminator helper (current) use of anticoagulants Status: Acute (3) Essential hypertension: Code(s): I10 - Essential (primary) hypertension Status: Acute (4) Type 2 diabetes mellitus without complication, without long-term current use of insulin: Code(s): E11.9 - Type 2 diabetes mellitus without complications Status: Acute DS: Summary Hospital Course Reason for hospitalization: STEMI Hospital Course: 82-year-old male with past medical history of hypertension, type 2 diabetes mellitus, history of DVT on anticoagulation with warfarin. Patient presented with inferior MN. He is status post primary PCI / CONCETTA times 2 with pentecostal of flow in the RCA. Dual antiplatelet therapy with aspirin and ticagrelor. High-dose statin Initially required Dopamine upon presentation due to junctional bradycardia, however, remained in sinus rhythm after PCI. Started low dose Toprol XL. Patient has significant disease in the mid LAD and proximal-mid LCX, which can be intervened in a staged fashion in near future. Will have patient follow up with Dr. Pennington. Patient tells me that he had previously tried Xarelto in the past instead of Warfarin, but NOACs are too expensive for him, and therefore, he was put back on Warfarin. He states he was told he should not stop his anticoagulation and should remain on it long-term. Given this, will plan to keep patient on ASA + Brilinta + Warfarin for 1 month. After 1 month, drop the ASA, and continue with Brilinta and Warfarin. Echo showed LVEF 60-65% Referral for cardiac rehab placed. Venous duplex was done during hospitalization which showed chronic appearing nonocclusive DVT in bilateral lower extremities. He should continue with anticoagulation. Status at Discharge Functional status at discharge: independent ambulation Overall status at discharge: patient is back to baseline Time Spent with Patient Time attestation: Total time spent providing and/or coordinating discharge services: Exam Const: General: comfortable and no acute distress HENMT: Mouth: Yes moist mucous membranes Eyes: General: appearance normal, both eyes and all related structures Sclera: sclerae normal Neck: Neck: supple Resp: Effort & Inspection: normal respiratory effort Auscultation: clear to auscultation bilaterally Cardio: Rate: regular rate Rhythm: regular rhythm Heart sounds: no murmurs Skin: General skin exam: normal color Extrem: General: normal to inspection Psych: Mental Status: mental status grossly normal Affect: normal affect DS: Data Data Completed and Pending Labs on day of discharge: Labs from last 24 hours 12/04/22 12/04/22 12/03/22 07:34 04:48 20:15 WBC 10.0 RBC 4.64 Hgb 12.7 L Hct 39.4 L MCV 84.9 MCH 27.4 MCHC 32.2 RDW 13.8 Plt Count 241 MPV 9.4 Immature Gran % (Auto) 0.5 Neut % (Auto) 71.8 Lymph % (Auto) 15.6 L [place] % (Auto) 11.3 H Eos % (Auto) 0.4 Baso % (Auto) 0.4 Lymph # (Auto) 1.56 [place] # (Auto) 1.1 H Eos # (Auto) 0.0 Baso # (Auto) 0.0 Abs Immat Gran (auto) 0.05 H Absolute Neuts (auto) 7.2 H Absolute Nucleated RBC 0.0 Nucleated RBC % 0.0 Sodium 135 L Potassium 3.9 Chloride 103 Carbon Dioxide 25 Anion Gap 7 L BUN 13 Creatinine 1.00 Estim Creat Clear Calc 52 Estimated GFR > 60 Glucose 183 H POC Capillary Glucose 156 H 152 H Calcium 8.6 Phosphorus 1.7 L Magnesium 1.8 Total Bilirubin 0.7 AST 75 H ALT 37 Alkaline Phosphatase 52 Total Protein 6.0 L Albumin 3.4 L 12/03/22 12/03/22 16
[2022-12-04] MEDS: TICAGRELOR 90 MG TABLET PO (09:02)
[2022-12-04] MEDS: amLODIPine BESYLATE 5 MG TABLET 10 MG PO (09:02)
[2022-12-04] MEDS: ATORVASTATIN 40 MG TABLET 80 MG PO (09:02)
[2022-12-04] MEDS: ASPIRIN 81 MG ENTERIC TABLET PO (09:02)
[2022-12-04] MEDS: METOPROLOL SUCCINATE EXT REL 25 MG TABCR PO (10:03)
== END 2022-12-04 10:23 | disposition home or self-care (01) | DRG 247 ==
LOC: ANHED 15:06 → ANHCATHLAB 15:44 → ANHED 16:21 → ANHICU 16:21 → ANHIMU 12-03 18:01
PROVIDERS: Internal Medicine; Admitting Provider Internal Medicine Cardiovascular Disease; Emergency Provider Emergency Medicine; PCP Nurse Practitioner; Visit Provider Internal Medicine
PROC: 4A023N7 Measurement of Cardiac Sampling and Pressure, Left Heart, Percutaneous Approach (ICD-10-PCS; CPT 93452; principal; 2022-12-02 15:30)
PROC: 027035Z Dilation of Coronary Artery, One Artery with Two Drug-eluting Intraluminal Devices, Percutaneous Approach (ICD-10-PCS; 2022-12-02 15:30)
PROC: 027035Z Dilation of Coronary Artery, One Artery with Two Drug-eluting Intraluminal Devices, Percutaneous Approach (ICD-10-PCS; 2022-12-02 15:30)
PROC: 027035Z Dilation of Coronary Artery, One Artery with Two Drug-eluting Intraluminal Devices, Percutaneous Approach (ICD-10-PCS; 2022-12-02 15:30)
DX: I21.19 ST elevation (STEMI) myocardial infarction involving other coronary artery of inferior wall (principal); I82.5Z3 Chronic embolism and thrombosis of unspecified deep veins of distal lower extremity, bilateral; I25.10 Atherosclerotic heart disease of native coronary artery without angina pectoris; I95.89 Other hypotension; I10 Essential (primary) hypertension; E11.9 Type 2 diabetes mellitus without complications; Z79.01 Long term (current) use of anticoagulants; Z87.442 Personal history of urinary calculi
CPT/HCPCS: 36415; 71045; 80053; 80061; 81001; 82948; 83735; 84100; 84484; 85025; 85055; 85610; 85730; 86850; 86900; 86901; 92978; 93005; 93458; 93970; 99291; A9270; C1725; C1753; C1760; C1769; C1874; C1887; C1894; C8929; C9113; C9606; G0269; J0583; J1265; J1644; J2250; J2370; J2405; J3010; J7030; J7040; J7168; Q9957

== ENCOUNTER → 2023-04-07 09:11 | Outpatient (CLI) | payer OTHER, SELFPAY ==
--- NOTE | ~2023-04-07 | XR_ITS ---
EXAM: XR abdomen/kub 1V DATE: 04/07/2023 09:35 HISTORY: BI KIDNEY STONE . COMPARISON: 07/19/2019; CT abdomen pelvis 04/07/2023. FINDINGS: Senescent changes in the lungs. Bibasilar scar/atelectasis. Normal bowel gas pattern. No o rganomegaly. Possible hepatic granuloma. Multiple predominantly left-sided calcifications project ove r the documented horseshoe kidney. Lumbar degenerative disc disease with large bridging osteophytes. Bilateral hip osteoarthritis. IMPRESSION: Partial kidney with stable left-sided nephrolithiasis. Reviewed, dictated and finalized at location K.
--- NOTE | ~2023-04-07 | CT_ITS ---
EXAMINATION: CT abdomen pelvis wo con DATE: 04/07/2023 09:36 INDICATION: Bilateral kidney stones TECHNIQUE: Computed tomography (CT) of the abdomen and pelvis was performed without intravenous contr ast. The dose-length product (DLP) was 546.83 mGy-cm. Automated exposure control and iterative recons truction technique were employed. COMPARISON: 04/15/2019 FINDINGS: Minimal dependent atelectasis is present in the lung bases. The heart size is normal. There is a small sliding hiatal hernia. There is a 4 mm cyst of the left hepatic lobe. Punctate calcificat ions in an otherwise normal spleen likely represent healed granulomatous disease. The pancreas, gallb ladder, and right adrenal gland are normal. There is chronic hyperplasia of the adrenal glands. A hor seshoe kidney is noted. There are least six stones in the left aspect of the horseshoe kidney, the la rgest of which measures 11 mm. No stones are identified in the ureters or bladder. There is mild foot and ankle surgeon joe hydronephrosis on the left. There is a right inguinal hernia containing a short segment of nonobs tructed sigmoid colon. No pathologically enlarged abdominal or pelvic lymph nodes are identified. No free intraperitoneal gas or evidence of bowel obstruction. There is calcified atherosclerosis of the aorta and many of the other arteries. There is moderate lumbar spondylosis. IMPRESSION: 1. Horseshoe kidney with chronic nephrolithiasis and mild hydronephrosis on the left. 2. Right inguinal hernia containing a short segment of nonobstructed sigmoid colon. Reviewed, dictated and finalized at location F. IMPRESSION: 1. Horseshoe kidney with chronic nephrolithiasis and mild hydronephrosis on the left. 2. Right inguinal hernia containing a short segment of nonobstructed sigmoid co willy.
== END ==
PROVIDERS: PCP Nurse Practitioner; Visit Provider Nurse Practitioner Adult Health
DX: N20.0 Calculus of kidney (principal); K40.90 Unilateral inguinal hernia, without obstruction or gangrene, not specified as recurrent
CPT/HCPCS: 74018; 74176

== ENCOUNTER 2023-05-03 11:00 | Outpatient (RCR) | payer OTHER, SELFPAY | END 2023-05-03 11:47 | disposition home or self-care (01) | LOC: ANHCPREHAB 11:00 | PROVIDERS: PCP Nurse Practitioner; Visit Provider Internal Medicine Cardiovascular Disease | DX: Z95.5 Presence of coronary angioplasty implant and graft (principal) | CPT/HCPCS: 93798 ==

== ENCOUNTER 2023-05-04 10:31 | Outpatient (CLI) | payer OTHER, SELFPAY ==
--- NOTE | ~2023-05-04 | US_ITS ---
EXAMINATION: US venous doppler [facility] DATE: 05/04/2023 11:11 INDICATION: Chronic deep vein thrombosis in the lower limbs. TECHNIQUE: Grayscale ultrasound images without and with compression and Doppler ultrasound images of the bilateral lower extremity veins were obtained. COMPARISON: Ultrasound 12/03/2022 FINDINGS: The visualized portions of right common femoral vein, peroneal veins, posterior tibial veins, and gre ater saphenous vein outflow are patent. There is thrombus in right profunda femoral vein, femoral vei n, and popliteal vein. The visualized portions of left common femoral vein, peroneal veins, posterior tibial veins, and grea ter saphenous vein outflow are patent. There is thrombus in left profunda femoral vein, femoral vein, and popliteal vein. IMPRESSION: 1. Bilateral deep vein thrombosis, similar in distribution to 12/03/2022. Reviewed, dictated and finalized at location E.
== END 2023-05-04 10:32 | disposition home or self-care (01) ==
PROVIDERS: PCP Nurse Practitioner; Visit Provider Internal Medicine Hematology & Oncology
DX: I82.5Z3 Chronic embolism and thrombosis of unspecified deep veins of distal lower extremity, bilateral (principal)
CPT/HCPCS: 93970

== ENCOUNTER 2023-09-06 12:28 | Outpatient (CLI) | payer OTHER, SELFPAY ==
--- NOTE | ~2023-09-06 | US_ITS ---
EXAMINATION: US venous doppler [facility] DATE: 09/06/2023 13:50 INDICATION: Chronic deep venous thrombosis in the lower limbs. TECHNIQUE: Grayscale ultrasound images without and with compression and Doppler ultrasound images of the bilateral lower extremity veins were obtained. COMPARISON: None. FINDINGS: The visualized portions of right common femoral vein, posterior tibial veins, peroneal veins and grea ter saphenous vein outflow are patent. There is persistent nonocclusive chronic thrombosis in the rig ht profunda femoral vein, femoral vein and popliteal vein. The visualized portions of left common femoral vein, posterior tibial veins, peroneal veins and great er saphenous vein outflow are patent. There is persistent nonocclusive chronic thrombosis in the left profunda femoral vein, femoral vein and popliteal vein. IMPRESSION: 1. No interval change in chronic deep venous thrombosis in the bilateral lower limbs. Reviewed, dictated and finalized at location A. UNTS PAYABLE ADMINISTRATOR
== END 2023-09-06 12:29 | disposition home or self-care (01) ==
LOC: ANHIMG 12:34
PROVIDERS: PCP Nurse Practitioner; Visit Provider Internal Medicine Hematology & Oncology
DX: I82.5Z3 Chronic embolism and thrombosis of unspecified deep veins of distal lower extremity, bilateral (principal)
CPT/HCPCS: 93970

== ENCOUNTER 2023-09-28 10:56 | Outpatient (CLI) | payer OTHER, SELFPAY ==
--- NOTE | ~2023-09-28 | XR_ITS ---
EXAMINATION: XR ribs RT 2V INDICATION: Right chest pain after fall TECHNIQUE: Four views of the right ribs were obtained. COMPARISON: 12/03/2022 FINDINGS: There are old fractures of the right seventh, eighth, and ninth ribs. There appear to be ac [place], minimally displaced anterolateral fractures of the right ninth and 10th ribs. The right lung is clear. No pleural effusion or pneumothorax identified. The cardiomediastinal silhouette is normal. Th ere is moderate osteoarthritis of the shoulder. IMPRESSION: 1. Acute fractures of the right ninth and 10th ribs. Reviewed, dictated and finalized at location L. F DEPUTY COURT CLERK
== END 2023-09-28 10:57 | disposition home or self-care (01) ==
PROVIDERS: PCP Nurse Practitioner; Visit Provider Nurse Practitioner
DX: S22.41XA Multiple fractures of ribs, right side, initial encounter for closed fracture (principal); W19.XXXA Unspecified fall, initial encounter
CPT/HCPCS: 71100

== ENCOUNTER 2025-01-30 21:33 | Emergency (ER) | payer OTHER, MEDICARE, SELFPAY ==
--- NOTE | ~2025-01-30 | CT_ITS ---
CT of the Abdomen and Pelvis: Indication: Abdominal pain Technique: 2.5 mm axial scans were obtained through the abdomen and pelvis following intravenous adm inistration of 100 cc of Omnipaque 350. Dose reduction technique was used on this scan by utilizing a utomated exposure control and iterative reconstruction technique. The dose-length product (DLP) was 6 53.43 mGy-cm. COMPARISON: 04/07/2023 Findings: Scans through the lung bases are unremarkable. The liver, spleen, pancreas, gallbladder, and right adrenal gland are within normal limits. Stable th ickening of the left adrenal gland. Horseshoe kidney present. There is mild hydronephrosis of the lef t renal moiety with multiple nonobstructing left-sided stones, largest measuring 11 mm in diameter. N o right-sided stones are definite right moiety hydronephrosis. No ureteral stone or hydroureter in ei ther side. No evidence of aortic aneurysm. No lymphadenopathy. No bowel obstruction or bowel wall thickening. There is no evidence to suggest acute appendicitis. Images through the pelvis were performed. Tiny bladder stone present. Probable mild extension of the prostate gland superiorly into the bladder base. Right inguinal hernia contains fat and a small focal portion of the sigmoid colon. Impression: Right inguinal hernia contains fat, a focal portion of the sigmoid colon, as well as minimal fluid. Horseshoe kidney with mild hydronephrosis of the left renal moiety with multiple left-sided stones. N o ureteral stone on either side. Tiny bladder stone. Probable mild extension of the superior prostate gland into the bladder base. Reviewed, dictated and finalized at location . Impression: Right inguinal hernia contains fat, a focal portion of the sigmoid colon, as we ll as minimal fluid. Horseshoe kidney with mild hydronephrosis of the left renal moiety with multipl e left-sided stones. No ureteral stone on either side. Tiny bladder stone. Probable mild extension of the superior prostate gland into the bladder base.
--- OUTSIDE RECORDS SUMMARY | 2025-01-30 21:35 | XMS_ITS | Clinical Summary ---
Author Organization [facility] Amando Angulo Address [address] [place] [address] Care Team Providers Care Fence Rider Name Role Phone Gaetano Wood MD Primary Care Provider [phone] Allergies No known active allergies Medications atorvastatin (LIPITOR) 80 mg tablet Take 80 mg by mouth daily. 12/04/2022 Active clopidogreL (PLAVIX) 75 mg Tablet 12/09/2022 Active lisinopriL (PRINIVIL) 20 mg tablet Take 20 mg by mouth 2 times daily. 11/04/2022 Active metFORMIN (GLUCOPHAGE) 500 mg tablet 10/28/2022 Active amLODIPine (NORVASC) 10 mg tablet Take 10 mg by mouth daily. 12/11/2022 Active metoprolol succinate (TOPROL XL) 25 mg Extended Release 24 hour tablet Take 25 mg by mouth daily in the morning. 12/04/2022 Active warfarin (COUMADIN) 5 mg tablet 01/04/2023 Active cetirizine (ZyrTEC) 10 mg tablet Take 10 mg by mouth daily. Active lansoprazole (PREVACID) 15 mg Capsule, Delayed Release(E.C.) Take 15 mg by mouth daily. Active Active Problems No known active problems Family History Medical History Relation Name Comments Heart Disease Brother Relation Name Status Comments Brother Alive Daughter Alive Father Mother Sister Son Alive Social History Tobacco Use Types Packs/Day Years Used Date Smoking Tobacco: Former Cigarettes Tobacco Cessation:Counseling Given: Not Answered Alcohol Use Standard Drinks/Week Comments Not Currently 0 (1 standard drink = 0.6 oz pur e alcohol) Sex and Gender Information Value Date Recorded Sex Assigned at Not on file Legal Sex Male 10:12 AM CDT Gender Identity Not on file Sexual Orientation Not on file Last Filed Vital Signs Vital Sign Reading Time Taken Comments Blood Pressure 107/54 09/13/2023 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 Pulse 75 09/13/2023 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 Temperature 35.8 C (96.5 F) 09/13/2023 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 Respiratory Rate 14 09/13/2023 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 Oxygen Saturation 95% 09/13/2023 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 Inhaled Oxygen Concentration - - Weight 88.9 kg (196 lb) 09/13/2023 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 Height 165.1 cm (5' 5) 01/21/2023 2:54 PM CDT Body Mass Index 32.62 01/21/2023 2:54 PM CDT Plan of Treatment Health Maintenance Due Date Last Done Comments DIABETES ANNUAL FOOT EXAM 1958 DIABETES ANNUAL RETINAL EXAM 1958 DIABETES HBA1C Q 6 MONTHS 1956 DIABETES MICROALBUMIN ANNUAL SCREEN 1956 LDL CHOLESTEROL ANNUAL 1956 DTAP/TDAP/TD VACCINES (1 - Tdap) 1957 PNEUMOCOCCAL VACCINE 50+ YEARS (1 of 2 - PCV) 06/16/19 57 ZOSTER VACCINE (1 of 2) 1988 RSV VACCINE (60+ or ) (1 - 1-dose 75+ series) 2013 INFLUENZA VACCINE (#1) 2024 Insurance [facility] MCR Care Teams Fence Rider Relationship Specialty Start Date End Date Gaetano Wood MD PCP - General Family Practice 01/21/23
--- OUTSIDE RECORDS SUMMARY | 2025-01-30 21:35 | XMS_ITS | Data Portability ---
Author Organization [facility], Main Office Address [address] [place] [address] Assessment Encounter Date Assessment Date Assessment LastModified by Organization Details LastModified Time 11/26/2022 11/26/2022 This note is dictated and transcribed by [employer]. Director Of Trauma variances may occur. Despite proofreading, typographical errors may occur. Not available 11/26/2022 11:56:05 02/25/2023 02/25/2023 This note is dictated and transcribed by [employer]. Director Of Trauma variances may occur. Despite proofreading, typographical errors may occur. Not available 02/25/2023 11:59:35 Plan of Treatment Reminders Order Date Submit Date Provider Last Modified By Organization Details Last Modified Time Details Appointments None recorded. Lab None recorded. Referral None recorded. Procedures None recorded. Surgeries None recorded. Imaging None recorded. Medication Orders ketoconazol e 2 % topical cream 2022 023 [facility] [employer] #[id number], [address], [place], [place], [id number], 11:57:36 Patient TargetsNo targets recorded. Patient InstructionsNo instructions recorded. Reason for Referral None Reported. Problems Name Problem SNOMED Code Status Onset Date Resolution Date Notes Provider Name and Address Organization Details Recorded Time Severe dry skin 499250412 Active 2022 Kendrick Bonilla DPM [address] [facility] [address], [place], [address] , [facility] 3 11:59:14 Open wound of toe 069800401 Completed 201806/12/2020 Not Available [facility] 3 04:51:50 Foot callus 499234910 Active 2019 Not Available [facility] 3 04:51:50 Unable to cut own toenails 552405247 Active 2022 Not Available [facility] 3 04:51:50 Pain in toe 523879298 Active 2019 Not Available [facility] 3 04:51:50 Pain in toe 597548194 Active 2020 Not Available [facility] 3 04:51:50 Pain in toe 400990760 Completed 201911/19/2020 Not Available [facility] 3 04:51:50 Ulcer of toe 468513557 Completed 201911/19/2020 Not Available [facility] 3 04:51:50 Paronychia of toe 469775521 Completed 201811/19/2020 Not Available [facility] 3 04:51:50 Onychomyco sis of toenails 500553452 Active 2019 Not Available [facility] 3 04:51:50 Diabetic peripheral neuropathy 890570374 Active 2019 Not Available [facility] 3 04:51:51 Subungual abscess 095135211 Active 2021 Not Available [facility] 3 04:51:51 Subungual abscess 093526375 Completed 201911/19/2020 Not Available [facility] 3 04:51:51 Tinea pedis 4664338 Active 2021 Not Available [facility] 3 04:51:51 Tinea pedis 7515240 Completed 201911/19/2020 Not Available [facility] 3 04:51:51 Diabetes mellitus 54894465 Active 2019 Not Available [facility] 3 04:51:51 Problem Notes None recorded. Procedures Surgical History Date Name Laterality Status Provider Name and Address Organization Details Recorded Time 3 Nail Debridement completed Kendrick Bonilla DPM [address] [facility], [place], [address], [facility] [employer] [facility] 02/25/2023 11:58:56 3 Callus Debridement, One completed Kendrick Bonilla DPM [address], [place], [address], [facility] [employer] [facility] 02/25/2023 13:59:55 3 Nail Debridement completed Kendrick Bonilla DPM [address], [place], [address], [facility] [employer] [facility] 11/26/2022 11:55:01 3 Callus Debridement, One completed Kendrick Bonilla DPM [address], [place], [address], [facility] [employer] [facility] 11/26/2022 11:55:06 Imaging Results None recorded. Procedure Notes None recorded. Medical Equipment None Reported. Medications Name Sig Start Date Stop Date Status Note LastModified by Organization Details LastModified Time clotrimazol e 10 mg marcello 10/14 completed Not Available Not Available Not Available metformin 500 mg tablet TK 1 T PO QD WITH THE MORNING AND KENNEY MEAL active Not Available Not Available No t Available atorvastati n 80 mg tablet TAKE 1 TABLET BY MOUTH DAILY active Not Available Not Available No t Available cefuroxime axetil 250 mg tablet TAKE 1 TABLET BY MOUTH EVERY 12 HOURS active Not Available Not Available No t Available ammonium lactate 12 % lotion APPLY 2 APPLICATU IONS TOPICALLY EVERY DAY DIRECTED active Not Available Not Available No t Available hydrocodone 5 mg-acetamin ophen 325 mg tablet 11/13 completed Not Available Not Available Not Available lisinopril 20 mg tablet TAKE 1 TABLET BY MOUTH TWICE DAILY active Not Available Not Available No t Available clopidogrel 75 mg tablet active Not Available Not Available Not Available amlodipine 5 mg tablet 05/23 completed Not Available Not Available Not Available ciprofloxac in 500 mg tablet 05/25 completed Not Available Not Available Not Available sulfamethox azole 800 mg-trimetho prim 160 mg tablet TK 1 T PO BID 11/13 completed Not Available Not Available Not Available aspirin 81 mg tablet,micah yed release TAKE 1 TABLET BY MOUTH EVERY MORNING active Not Available Not Available No t Available tamsulosin 0.4 mg capsule 05/23 completed Not Available Not Available Not Available amlodipine 10 mg tablet TAKE 1 TABLET BY MOUTH DAILY active Not Available Not Available No t Available doxycycline monohydrate 100 mg capsule Take 1 capsule twice a day by oral route with meals for 5 days. active Not Available Not Available No t Available lisinopril 10 mg tablet 09/23 completed Not Available Not Available Not Available warfarin 5 mg tablet TAKE 1 TABLET BY MOUTH ON Wednesday AND FRIDAYS TAKE 1/2 TABLET BY MOUTH ON Thursdays AND SUNDAYS active Not Available Not Available No t Available mupirocin 2 % topical ointment APPLY TO LEFT TOE WOUND DAILY active Not Available Not Available No t Available metoprolol succinate ER 25 mg tablet,exte nded release 24 hr TAKE 1 TABLET BY MOUTH EVERY MORNING active Not Available Not Available No t Available methylpredn isolone 4 mg tablets in a dose pack FOLLOW PACKAGE DIRECTION S active Not Available Not Available No t Available ketoconazol e 2 % topical cream APPLY TOPICALLY TO THE AFFECTED AREAs of feet EVERY DAY FOR 2 WEEKS 2022 active Not Available Not Available Not Avai lable ondansetron 4 mg disintegrat ing tablet 05/23 completed Not Available Not Available Not Available hydrochloro thiazide 12.5 mg tablet TAKE 1 TABLET BY MOUTH DAILY active Not Available Not Available No t Available Brilinta 90 mg tablet TAKE 1 TABLET BY MOUTH EVERY 12 HOURS active Not Available Not Available No t Available Xarelto 15 mg tablet TK 1 T PO BID FOR 21 DAYS. TAKE WITH FOOD 11/13 completed Not Available Not Available Not Available Vitals Date Recorded Body mass index (BMI) Body height Oxygen saturation Oxygen saturation in Arterial blood by Pulse oximetry Heart rate Respiratory rate Body weight Systolic blood pressure Diastolic blood pressure Provider Name and Address Organization Details Last Updated DateTime 3 31.6 kg/m2 165.1 cm 97 % 97 % 91 /min 16 /min 56357.5 5 g 126 mm[Hg] 62 mm[Hg] Not Available [facility] 3 04:47:19 Date Recorded Body height Heart rate Respiratory rate Oxygen saturation Oxygen saturation in Arterial blood by Pulse oximetry Systolic blood pressure Diastolic blood pressure Provider Name and Address Organization Details Last Updated DateTime 3 165.1 cm 85 /min 16 /min 98 % 98 % 123 mm[Hg] 68 mm[Hg] Hoa Owen [facility] [employer] [facility] 3 11:14:00 Date Recorded Body height Heart rate Respiratory rate Oxygen saturation Oxygen saturation in Arterial blood by Pulse oximetry Systolic blood pressure Diastolic blood pressure Provider Name and Address Organization Details Last Updated DateTime 3 165.1 cm 77 /min 14 /min 98 % 98 % 110 mm[Hg] 54 mm[Hg] Hoa Owen [facility] [employer] [facility] 3 11:30:17 Date Recorded Body mass index (BMI) Body height Oxygen saturation Oxygen saturation in Arterial blood by Pulse oximetry Heart rate Respiratory rate Body weight Systolic blood pressure Diastolic blood pressure Provider Name and Address Organization Details Last Updated DateTime 2 31.6 kg/m2 165.1 cm 97 % 97 % 87 /min 16 /min 32162.5 5 g 119 mm[Hg] 64 mm[Hg] Not Available [facility] 3 04:47:19 Social History None recorded. Functional Status None recorded. Mental Status None recorded. Family History Relationship Description Onset Age of this Age Resolved Age Notes LastModified by Organization Details LastModified Time Father No current problems or disability [id number] Not available 09/30/2022 04:42:36 Mother No current problems or disability [id number] Not available 09/30/2022 04:42:36 Medical History Condition Response DIABETES, TYPE Y Past Encounters Encounter ID Performer Location Encounter Start Date Encounter Closed Date Diagnosis/Indication Diagnosis SNOMED-CT Code Diagnosis ICD10 Code Diagnosis Note [id number] MARY Dunn [facility]_ DEFAULT_1 _1 , 11/18/2020 00:00:00 11/19/2020 09:05:26 [id number] MARY Dunn [facility]_ DEFAULT_1 _1 , 02/17/2021 00:00:00 02/17/2021 15:03:04 [id number] MARY Dunn [facility]_ DEFAULT_1 _1 , 2021 00:00:00 06/17/2021 09:49:57 [id number] MARY Dunn [facility]_ DEFAULT_1 _1 , 09/15/2021 00:00:00 09/16/2021 09:00:25 [id number] MARY Dunn [facility]_ DEFAULT_1 _1 , 12/15/2021 00:00:00 12/22/2021 14:19:56 [id number] MARY Dunn [facility]_ DEFAULT_1 _1 , 12/22/2021 00:00:00 12/22/2021 14:41:04 [id number] MARY Dunn [facility]_ DEFAULT_1 _1 , 03/23/2022 00:00:00 03/23/2022 14:57:51 [id number] MRAY Dunn [facility]_ DEFAULT_1 _1 , 06/22/2022 00:00:00 06/22/2022 14:50:10 [id number] Kendrick Bonilla DPM [facility] [place] [address] [place] [address] 09/28/2022 00:00:00 09/28/2022 11:30:59 [id number] Kendrick Ramonkeelias MARY [facility] [place] [address] [place] [address] 11/26/2022 11:05:26 11/26/2022 12:05:53 Diabetic peripheral neuropathy 139928734 E11.42 Patient educated on neuropathy , diabetes, diabetic diet, and daily foot exams. Patient is to check feet daily for new wounds, blisters, redness to prevent infection and ulceration s to the feet. Patient will return to clinic in 3 months for diabetic foot workup. Foot callus 480480085 L8 4 Left foot debrided without incidented ucated on treatment optionsrec ommend use of pumice stone dailydebri ded today without incident Onychomyco sis of toenails 544781233 B35.1 Patient was educated on treatment options of onychomyco sis. Patient's nails 1 through 10 were debrided without incident. Patient defers pharmacolo gical management due to possible side effects and will continue with conservati ve options. Return to clinic as needed every 3 months for this problem Unable to cut own toenails 130793505 Z74.1 Tinea pedis 1709919 B35. 3 bilateral feet [id number] Kendrick Bonilla DPM [facility] [place] [address] [place] [address] 02/25/2023 11:22:20 02/25/2023 15:33:13 Subungual abscess 499608832 L02.519 right 5th toeDebride d without incidentAp plied topical triple antibiotic ointment daily with bandageFol low-up in 1 week Onychomyco sis of toenails 160395256 B35.1 denies pharmacolo gical management Nails 1 through 10 were debrided with sharp mechanical debridemen t without incident. Nails were debrided and greater than 50% length and thickness where needed. Diabetic p eripheral neuropathy 878973093 E11.42 Patient educated on neuropathy , diabetes, diabetic diet, and daily foot exams. Patient is to check feet daily for new wounds, blisters, redness to prevent infection and ulceration s to the feet. Patient will return to clinic in 3 months for diabetic foot workup. Severe dry skin 60378870 2 L85.3 daily lotion hygiene Foot callus 173397611 L8 4 Left foot debrided without incidented ucated on treatment optionsrec ommend use of pumice stone dailydebri ded today without incident Health Concerns Section Related Observation LastModified by Organization Detai ls LastModified Time None Recorded Concern Status LastModified by Organization Details LastModified Time None Recorded Advance Directives Directive None Recorded Payers Insurance Date Sequence Insurance Name Policy Number Policy Diaz Covered Member ID Diaz Member ID Guarantor Name 03/02/2023 1 [facility] (MEDICARE REPLACEMENT HMO) [id number] Luke Lawrence [id number] Luke Lawrence Notes Date Note Type Note Provider Name and Address Organization Details Recorded Time 11/26/2022 text/html . Patient is an 82-year-old male diabetic who returns the office for follow-up on diabetic foot exam. Patient states he continues have numbness and tingling in feet. Patient continues to develop a callus on medial aspect of the foot. Patient denies any wounds or infection. Patient also has onychomycosis of the toenails to which he has topical ketoconazole. Patient was told to apply the medication daily to the toenails. Patient has continued dry skin with recurrent tinea pedis. Patient denies any itching secondary to neuropathy. Patient denies any other pedal complaints. Kendrick Bonilla DPM [address], [place], [address], [facility] 11/26/2022 11:58:58 02/25/2023 text/html . Patient is an 82-year-old male diabetic who returns the office for diabetic foot care. Patient states overall he has been doing well. Patient states he has been having increased pain to his toenails. Patient states his right 5th toenail causes him more pain. Patient denies any redness or drainage. Patient denies any injury of the foot. Patient denies any other complaints and would like his toenails cut as he is unable to cut them. Kendrick Bonilla DPM [address], [place], [address], [facility] 02/25/2023 14:01:26
[2025-01-30 21:38] VITALS: BP 116/50; PULSE 57; RESP 20; TEMP 36.4; O2SAT 98
[2025-01-30] MEDS: ONDANSETRON HCL ODT 4 MG TABLET PO (21:55)
[2025-01-30 23:49] VITALS: PULSE 80; RESP 16
[2025-01-30 23:51] VITALS: BP 139/62; PULSE 84; RESP 17; O2SAT 98
[2025-01-30 23:52] VITALS: PULSE 74; RESP 19; O2SAT 98
[2025-01-31] VITALS (23 sets, daily range): BP systolic 111–133; BP diastolic 52–69; PULSE 63–86; RESP 10–25; O2SAT 88–97
[2025-01-31 00:10] LABS: Add Urine Microscopic? YES; Appearance Urine Cloudy (Clear); Glucose Urine UA Trace mg/dL (Negative); Leukocyte Esterase Ur Negative LEU/UL (Negative); Need Manual Microscopic Reviewed; Nitrate Urine Negative (Negative); Specific Grav Ur 1.028 (1.001-1.035)
[2025-01-31 00:12] LABS: Alanine Aminotransferase 31 U/L (6-50); Albumin Level 4.2 g/dL (3.5-5.1); Alkaline Phosphatase 95 U/L (38-126); Anion Gap 11 mmol/L (4-12); Aspartate Amino Transferase 28 U/L (17-59); Bilirubin,Total 0.3 mg/dL (0.2-1.3); Blood Urea Nitrogen 25 mg/dL (9-20); Calcium 9.5 mg/dL (8.4-10.2); Carbon Dioxide 24 mmol/L (22-30); Chloride 102 mmol/L (98-107); Estimated Glomerular Filt Rate > 60; Glucose 198 mg/dL (65-110); Lipase 48 U/L (23-300); Potassium 4.7 mmol/L (3.4-5.0); Sodium 137 mmol/L (137-145); Total Protein 7.7 g/dL (6.3-8.2)
--- OUTSIDE RECORDS SUMMARY | 2025-01-31 00:16 | XMS_ITS | Clinical Summary ---
Author Organization [facility] Amando Angulo Address [address] [place] [address] Care Team Providers Care Internal Control Consultant Name Role Phone Gaetano Wood MD Primary Care Provider [phone] Allergies No known active allergies Medications atorvastatin [...] Comments Blood Pressure 107/54 09/13/2023 2:41 PM [employer] Pulse 75 09/13/2023 2:41 PM [employer] Temperature 35.8 C (96.5 F) 09/13/2023 2:41 PM [employer] Respiratory Rate 14 09/13/2023 2:41 PM [employer] Oxygen Saturation 95% 09/13/2023 2:41 PM [employer] Inhaled Oxygen Concentration - - Weight 88.9 kg (196 lb) 09/13/2023 2:41 PM [employer] Height 165.1 cm (5' 5) 01/21/2023 2:54 [...] 2013 INFLUENZA VACCINE (#1) 2024 Insurance [facility] Address: [place] [address] Care Teams Internal Control Consultant Relationship Specialty Start Date End Date Gaetano Wood MD PCP - General Family Practice 01/21/23
[2025-01-31 00:17] LABS: Hematocrit 43.3 % (42.0-52.0); Hemoglobin 13.4 g/dL (14.0-18.0); Immature Granulocyte Percent A 1.2 % (0-0.5); Lymphocytes Absolute Auto 1.12 K/mm3 (0.9-3.2); Mean Corpuscular HGB Conc 30.9 g/dl (32-36); Mean Corpuscular Hemoglobin 27.5 pg (26-34); Mean Corpuscular Volume 88.9 fl (80-100); Nucleated Red Blood Cells Absolute Auto 0.000 K/mm3 (0.0-0.012); Nucleated Red Blood Cells Perc 0.0 % (0.0-0.2); Platelet Count Result 310 k/mm3 (150-375); Red Blood Count 4.87 M/mm3 (4.6-6.20); White Blood Count 14.6 K/mm3 (4.5-10.0)
--- NOTE | 2025-01-31 01:06 | ED.ABDPAIN ---
HPI - Abdominal Pain General Chief Complaint: Abdominal Pain Stated Complaint: lower abdominal pain starting tonight Time Seen by Provider: 01/31/25 00:00 Source: patient Mode of arrival: ambulatory Limitations: no limitations History of Present Illness HPI narrative: This is a 84 year old male that presents to the ER for lower abdominal pain. Ongoing since last night. Reports some nausea. Denies fevers, vomiting. Related Data Home Medications ?Medication ?Instructions ?Recorded ?Confirmed ?Last Taken ?Type lansoprazole 15 mg capsule,delayed 15 mg PO DAILY 03/09/23 11/09/24 Unknown History release Allergies Allergy/AdvReac Type Severity Reaction Status Date / Time No Known Allergies Allergy Verified 01/30/25 21:38 Review of Systems Review of Systems: All systems reviewed & are unremarkable except as noted in HPI and below PMFSH Past Medical History Medical History BMI 32.0-32.9,adult Heart attack Hx of blood clots SOB (shortness of breath) Deep vein thrombophlebitis of lower leg Body mass index (bmi) 29.0-29.9, adult Diabetes type 2, controlled Nephrolithiasis Deep vein thrombosis Surgical History Surgical History History of coronary artery stent placement 11/2022 Family History Family History Sibling Acute myocardial infarction Family history of malignant neoplasm Patient's brother is in good health Father Family history unknown Mother Family history unknown Other Acute myocardial infarction Social History Social History Smoking packs per day: 1 Smoking cigarettes per day: 20.0 Years smoked: 20 Smoking pack-years: 20.00 Smoking status: Former smoker Tobacco type: cigarettes Second hand tobacco smoke exposure: No Smoking end date: 08/02/77 Alcohol intake: never Substance use: never Substance use type: does not use Do You Feel Safe in your Home?: Yes Lack of Transportation: No Lack of Food: Never True Current Housing: I Have Housing Concerned About Future Housing: No Difficulty Paying Gas/Electric Bills: No Difficulty Paying for Meds: No Currently Unemployed: No Education: High School Diploma/GED Difficulty w/ Childcare or Family Care: No Living arrangements: with family Occupation/Education: retired Additional occupation/education comments: [employer] Gender identity (if verbalized by the patient): Male Spiritual care concerns: No Exam Narrative: GENERAL: Well-appearing, well-nourished, and in no acute distress. HEAD: Normocephalic, atraumatic. EYES: EOMI. CHEST: Clear to auscultation. No respiratory distress. No wheezes rales or rhonchi HEART: Regular rate and rhythm. No murmur heard. Normal peripheral pulses. ABDOMEN: Soft, nontender, nondistended, normal active bowel sounds. Right inguinal hernias is easily reduced EXTREMITIES: Normal range of motion. No edema. SKIN: Warm, dry, no rash. NEURO: No focal deficits. Alert and oriented x3. PSYCH: Normal mood and affect Course Course Emergency Course: Patient updated on his workup. He reports feeling much better at this time Consultations Consultation #1: Spoke with Dr. Camacho, since patient is no longer in pain, hernia is reduced, he may follow up in clinic. Will be given strict return precautions Date: 01/31/25 Vital Signs Vital signs: Vital Signs Temperature 97.5 F L 01/30/25 21:38 Pulse Rate 57 L 01/30/25 21:38 Respiratory Rate 20 01/30/25 21:38 Blood Pressure 116/50 L 01/30/25 21:38 Pulse Oximetry 98 01/30/25 21:38 Oxygen Delivery Room Air 01/30/25 21:38 Temperature 97.5 F L 01/30/25 21:38 Pulse Rate 84 01/30/25 23:51 Respiratory Rate 17 01/30/25 23:51 Blood Pressure 139/62 01/30/25 23:51 Pulse Oximetry 98 01/30/25 23:51 Oxygen Delivery Room Air 01/30/25 21:38 MDM - Abdominal Pain MDM Narrative Medical decision making narrative: Patient presents the emergency department for lower abdominal pain. He is afebrile and nontoxic appearing. His vitals are stable. CBC with leukocytosis to 14.6. Shows normocytic anemia hemoglobin of 13.4. Metabolic panel without concerning findings. Lactic acid elevated, patient hydrated with a L of IV fluids. Urine without evidence of infection. CT abdomen and pelvis shows a right inguinal hernia containing a portion of colon and fat. Some inflammatory changes and fluid within the hernia sac. Cannot exclude incarceration of the hernia fat. Possible ileus. Patient's pain was relieved without any intervention. He is resting comfortably. His hernia is easily reduced. Spoke with Dr. Camacho, since patient is no longer in pain, hernia is reduced, he may follow up in clinic. Will be given strict return precautions Differential Diagnosis Differential diagnosis: Likely calculus of kidney, constipation, diverticulitis, small bowel obstruction and other (hernia incarceration) Lab Data Attestation: I reviewed the patient's lab results. 01/30/25 23:51 01/30/25 23:51 Labs: Lab Results 01/30/25 01/31/25 Range/Units 23:51 03:20 WBC 14.6 H (4.5-10.0) K/mm3 RBC 4.87 (4.6-6.20) M/mm3 Hgb 13.4 L (14.0-18.0) g/dL Hct 43.3 (42.0-52.0) % MCV 88.9 (80-100) fl MCH 27.5 (26-34) pg MCHC 30.9 L (32-36) g/dl RDW 13.3 (11.5-14.5) % Plt Count 310 (150-375) k/mm3 MPV 9.3 (7.4-10.4) fl Immature Gran % (Auto) 1.2 H (0-0.5) % Neut % (Auto) 87.4 H (45.5-73.1) % Lymph % (Auto) 7.7 L (18.3-44.2) % [place] % (Auto) 3.1 (2.6-8.5) % Eos % (Auto) 0.1 (0-4.4) % Baso % (Auto) 0.5 (0.2-1.2) % Lymph # (Auto) 1.12 (0.9-3.2) K/mm3 [place] # (Auto) 0.5 (0.1-0.6) K/mm3 Eos # (Auto) 0.0 (0-0.3) K/mm3 Baso # (Auto) 0.1 (0.0-0.1) K/mm3 Abs Immat Gran (auto) 0.18 H (0.00-0.031) K/mm3 Absolute Neuts (auto) 12.8 H (1.3-6.7) K/mm3 Absolute Nucleated RBC 0.000 (0.0-0.012) K/mm3 Nucleated RBC % 0.0 (0.0-0.2) % Sodium 137 (137-145) mmol/L Potassium 4.7 (3.4-5.0) mmol/L Chloride 102 (98-107) mmol/L Carbon Dioxide 24 (22-30) mmol/L Anion Gap 11 (4-12) mmol/L BUN 25 H D (9-20) mg/dL Creatinine 1.06 (0.7-1.3) mg/dL Estim Creat Clear Calc Not Reportable Estimated GFR > 60 (59 - ) Glucose 198 H (65-110) mg/dL Lactic Acid Pending Calcium 9.5 (8.4-10.2) mg/dL Total Bilirubin 0.3 (0.2-1.3) mg/dL AST 28 (17-59) U/L ALT 31 (6-50) U/L Alkaline Phosphatase 95 (38-126) U/L Total Protein 7.7 (6.3-8.2) g/dL Albumin 4.2 (3.5-5.1) g/dL Lipase 48 (23-300) U/L Urine Color Yellow (Yellow) Urine Appearance Cloudy H (Clear) Urine pH 5.5 (5.0-9.0) Ur Specific [place] 1.028 (1.001-1.035) Urine Protein 1+ H (Negative) mg/dL Urine Glucose (UA) Trace H (Negative) mg/dL Urine Ketones Trace H (Negative) mg/dL Ur Blood (Man) Negative (Negative) Urine Nitrate Negative (Negative) Urine Bilirubin Negative (Negative) Urine Urobilinogen 1.0 (<2.0) mg/dL Add Ur Microanalysis Reviewed Leukocyte Esterase Rfl Negative (Negative) ROXANN/UL Urine RBC 3-5 H (0-2) /hpf Urine WBC 0-5 (0-3) /hpf Ur Squamous Epith Cells Occasional (Few) /hpf Urine Bacteria None seen /hpf Urine Casts 6-10 Hyaline Casts Present (None) /lpf Urine Mucus Present /lpf Imaging Data Radiologist's impression: CT abdomen and pelvis: There is a right inguinal hernia containing a portion of the colon and fat. There are some inflammatory changes and fluid within the hernia sac. Cannot exclude incarceration of the herniated fat. The overall bowel gas pattern may represent an ileus. The urinary bladder is distended containing a small calculus. There is some wall thickening. This may be due to hypertrophy. Critical Care Time Critical Care Time Critical Care Time: No Discharge Plan Discharge Clinical Impression: Ileus Inguinal hernia Qualifiers: Obstruction and gangrene presence: without obstruction or gangrene Laterality: unilateral Recurrence: not specified as recurrent Qualified Code(s): K40.90 - Unilateral inguinal hernia, without obstruction or gangrene, not specified as recurrent Patient Disposition: Home Condition: Improved Instructions: Inguinal Hernia (ED), Ileus (ED) Additional Instructions: Return to the ER if you experience fever, abdominal pain with nausea and vomiting, you are unable to keep down liquids or solids, or any other symptoms that are concerning to you Avoid lifting/straining Follow up with your general surgeon Patient Language: Croatian Prescriptions: No Action clopidogrel 75 mg tablet 75 mg PO DAILY Qty: 1 0RF lansoprazole 15 mg capsule,delayed release(DR/EC) 15 mg PO DAILY metformin 1,000 mg tablet 500 mg PO BIDWMEAL Qty: 180 1RF aspirin 81 mg Tablet,Delayed Release (Dr/Ec) 81 mg PO QAM Qty: 30 0RF atorvastatin 80 mg tablet 80 mg PO DAILY Qty: 90 3RF metoprolol succinate [Toprol XL] 25 mg Tablet Extended Release 24 Hr 25 mg PO QAM Qty: 90 3RF lisinopril 20 mg tablet See Rx Instructions .ROUTE .COMPLEX Qty: 180 1RF Dose Instruction: TAKE 1 TABLET BY MOUTH TWICE DAILY Rx Instructions: TAKE 1 TABLET BY MOUTH TWICE DAILY amlodipine 10 mg tablet 10 mg PO DAILY Qty: 90 1RF Follow-up/Referrals: Emerald Pichardo MD [Physician] - Jani Buck APRN [Primary Care Provider] -
[2025-01-31] MEDS: SODIUM CHLORIDE 0.9% IV 500 ML 999 ML IV CONT (01:09)
== END 2025-01-31 03:52 | disposition home or self-care (01) ==
PROVIDERS: Student in an Organized Health Care Education/Training Program; Emergency Provider Physician Assistant; PCP Nurse Practitioner
DX: K56.7 Ileus, unspecified (principal); K40.90 Unilateral inguinal hernia, without obstruction or gangrene, not specified as recurrent; I25.2 Old myocardial infarction; E11.9 Type 2 diabetes mellitus without complications; Z95.5 Presence of coronary angioplasty implant and graft; Z87.442 Personal history of urinary calculi; Z86.718 Personal history of other venous thrombosis and embolism; Z87.891 Personal history of nicotine dependence; Z79.02 Long term (current) use of antithrombotics/antiplatelets; Z79.899 Other long term (current) drug therapy; Z79.82 Long term (current) use of aspirin; Z79.84 Long term (current) use of oral hypoglycemic drugs
CPT/HCPCS: 36415; 74177; 80053; 81001; 83605; 83690; 85025; 99284; A9270; J7040; Q9967

== ENCOUNTER 2025-03-09 11:26 | Outpatient (CLI) | payer OTHER, SELFPAY ==
--- OUTSIDE RECORDS SUMMARY | 2025-03-09 11:34 | XMS_ITS | Clinical Summary ---
Author Organization [facility] Amando Angulo Address [address] [place] [address] Care Team Providers Care Machinist First Class Name Role Phone Gaetano Wood MD Primary Care Provider [phone] Allergies No known active allergies Medications atorvastatin [...] Comments Blood Pressure 107/54 09/13/2023 2:41 PM APPRAISAL TECHNICIAN Pulse 75 09/13/2023 2:41 PM APPRAISAL TECHNICIAN Temperature 35.8 C (96.5 F) 09/13/2023 2:41 PM APPRAISAL TECHNICIAN Respiratory Rate 14 09/13/2023 2:41 PM APPRAISAL TECHNICIAN Oxygen Saturation 95% 09/13/2023 2:41 PM APPRAISAL TECHNICIAN Inhaled Oxygen Concentration - - Weight 88.9 kg (196 lb) 09/13/2023 2:41 PM APPRAISAL TECHNICIAN Height 165.1 cm (5' 5) 01/21/2023 2:54 [...] 1-dose 75+ series) 2013 INFLUENZA VACCINE (#1) 2025 Insurance [facility] Address: [place] [address] Care Teams Machinist First Class Relationship Specialty Start Date End Date Gaetano Wood MD PCP - General Family Practice 01/21/23
--- NOTE | 2025-03-09 11:37 | ECG_ITS ---
Test Date: 2025-03-09 11:44:44 Measurements Intervals Paron Rate: 79 P: 65 AK: 148 QRS: 86 QRSD: 142 T: 4 QT: 414 QTc: 476 Interpretive Statements SINUS RHYTHM WITH OCCASIONAL VENTRICULAR PREMATURE COMPLEXES RIGHT BUNDLE BRANCH BLOCK BASELINE ARTIFACT- I, II ABNORMAL ECG No previous ECG available for comparison Electronically Signed On 03-09-2025 11:53:57 CDT by Anthony lFoyd D.O.
== END 2025-03-09 11:27 | disposition home or self-care (01) ==
LOC: ANHSURGERY 11:32
PROVIDERS: PCP Nurse Practitioner; Visit Provider Surgery
DX: K40.90 Unilateral inguinal hernia, without obstruction or gangrene, not specified as recurrent (principal); I25.10 Atherosclerotic heart disease of native coronary artery without angina pectoris; I21.3 ST elevation (STEMI) myocardial infarction of unspecified site; R06.09 Other forms of dyspnea; I10 Essential (primary) hypertension; Z01.818 Encounter for other preprocedural examination; I45.10 Unspecified right bundle-branch block
CPT/HCPCS: 36415; 86850; 86900; 86901; 93005

== ENCOUNTER 2025-03-19 01:07 | Day surgery (SDC) | payer OTHER, SELFPAY ==
[2025-03-08 10:40] VITALS: BMI 30.9
--- NOTE | 2025-03-08 11:00 | PC.NURSE ---
Addendum entered by Tena Lopez RN 03/08/25 15:04: 1500 03/08/25 LM on daughter VM, pt needs to start Baby Aspirin daily while off the Plavix/Clopidogrel preop the week prior per Dr JAIME, pt is not to take the aspirin the am of but in the days prior to surgery as directed and we will repeat an EKG on day of testing as well. KALEE Original Note: Report to the Outpatient Waiting Room, entrance under the green pavilion located off [facility], at time _10:30am on date ___03/19/25____. Planned Procedure Time: __1230pm .? Time changes happen often and if your time is changed the preop area will call you the afternoon before. - You and your visitor will be asked to self-screen and do not enter if you have any COVID symptoms. Please call surgeon if you need to reschedule. - A mask is optional within the hospital at this time. Patients may have clear liquids (water, carbonated beverages, clear teas, apple juice) until 3 hours prior to surgery with a maximum of 20 ounces. - No food from midnight until time of surgery and no smoking, or chewing tobacco (or any form of nicotine). No chewing gum, candy or mints. (0930am) Take only the following medications with a SIP of water on the morning of surgery: ___Metoprolol and Amlodipine DO NOT STOP ANY OF YOUR OTHER PRESCRIPTION MEDICATIONS PRIOR TO SURGERY EXCEPT THE FOLLOWING Hold all vitamins and supplements for 3 days per anesthesiologist. Medications to discontinue per physician __Plavix for [address] Jaime Date to take last dose___03/10/25 ( Dr Jaime office to clarify on the Baby Aspirin if pt to start it or not interim or Not.) Please no make-up, nail czech, hairspray, perfume, deodorant, or body powder the day of surgery.? No jewelry (including any body piercings) or valuables the day of surgery, leave them at home.? Please take a shower or bath the night before, or the morning of, surgery with an antibacterial soap.(GOLD DIAL)? Wear comfortable, loose fitting clothing.? - Jewelry must be removed prior to entering the operating room.? Rings and piercings that are not removed may be cut off. - The hospital will not accept responsibility for valuables.? - Please leave all valuables, including medications, at home the day of surgery. If you are going home after surgery, a licensed bobtail driver must drive you home.? - NO public transportation without another adult if you receive anesthesia. - We recommend that an adult stay with you for 24 hours following discharge. - We also recommend that you do not drive, make important decision, drink alcoholic beverages, or take any drugs that were not prescribed by your health care provider for at least 24 hours after your discharge time. Follow any additional instructions given to you from your surgeon. Telephone instructions given to ___Daughter (CRIS) and asked if any additional questions and then verbalized understanding. Patient advised to call surgeon office or pre surgery nurse liaison [phone] if any additional questions.
[2025-03-19] VITALS (13 sets, daily range): BP systolic 103–123; BP diastolic 45–74; PULSE 72–102; RESP 12–16; TEMP 36.2–36.4; O2SAT 92–100; BMI 27.3
--- OUTSIDE RECORDS SUMMARY | 2025-03-19 01:17 | XMS_ITS | Clinical Summary ---
Author Organization [facility] Amando Angulo Address [address] [place] [address] Care Team Providers Care Form Coverer Name Role Phone Gaetano Wood MD Primary Care Provider [phone] Allergies No known active allergies Medications atorvastatin [...] Comments Blood Pressure 107/54 09/13/2023 2:41 PM SALES ANALYST Pulse 75 09/13/2023 2:41 PM SALES ANALYST Temperature 35.8 C (96.5 F) 09/13/2023 2:41 PM SALES ANALYST Respiratory Rate 14 09/13/2023 2:41 PM SALES ANALYST Oxygen Saturation 95% 09/13/2023 2:41 PM SALES ANALYST Inhaled Oxygen Concentration - - Weight 88.9 kg (196 lb) 09/13/2023 2:41 PM SALES ANALYST Height 165.1 cm (5' 5) 01/21/2023 2:54 [...] series) 2013 INFLUENZA VACCINE (#1) 2025 Insurance [facility] Address: [place] [address] Care Teams Form Coverer Relationship Specialty Start Date End Date Gaetano Wood MD PCP - General Family Practice 01/21/23
--- NOTE | 2025-03-19 07:21 | PM.IMHP ---
H&P: HPI History of Present Illness Date/Time: 03/19/25 07:21 Chief Complaint: incarcerated right inguinal hernia Narrative: Luke returns for another evaluation of a right inguinal hernia. He recently presented to [facility] ER on 01/30/[address] abdomen pelvis w con was done on 01/30/25 and showed a right inguinal hernia that contains fat, a focal portion of the sigmoid colon, as well as minimal fluid. He feels his symptoms have worsened. He has a large bulge that he is not able to reduce. He currently takes Plavix. Review of Systems Review of Systems: All systems reviewed & are unremarkable except as noted in HPI and below PMFSH Past Medical History Medical History Hypertension GERD (gastroesophageal reflux disease) Arthritis BMI 32.0-32.9,adult Heart attack Hx of blood clots SOB (shortness of breath) Deep vein thrombophlebitis of lower leg Body mass index (bmi) 29.0-29.9, adult Diabetes type 2, controlled Nephrolithiasis Deep vein thrombosis Surgical History Surgical History History of coronary artery stent placement 11/2022 Family History Family History Sibling Acute myocardial infarction Family history of malignant neoplasm Patient's brother is in good health Father Family history unknown Mother Family history unknown Other Acute myocardial infarction Social History Social History Smoking packs per day: 1 Smoking cigarettes per day: 20.0 Years smoked: 20 Smoking pack-years: 20.00 Smoking status: Former smoker Tobacco type: cigarettes Second hand tobacco smoke exposure: No Smoking end date: 08/02/77 Alcohol intake: never Substance use: never Substance use type: does not use Do You Feel Safe in your Home?: Yes Lack of Transportation: No Lack of Food: Never True Current Housing: I Have Housing Concerned About Future Housing: No Difficulty Paying Gas/Electric Bills: No Difficulty Paying for Meds: No Currently Unemployed: No Education: High School Diploma/GED Difficulty w/ Childcare or Family Care: No Living arrangements: with family Additional living arrangements comments: w Daughter Deb Avila Occupation/Education: retired Additional occupation/education comments: [employer] Gender identity (if verbalized by the patient): Male Spiritual care concerns: No Meds Home Medications and Allergies Home Medications ?Medication ?Instructions ?Recorded ?Confirmed ?Type atorvastatin 80 mg tablet 80 mg PO DAILY #90 tabs 12/04/22 03/08/25 Rx metoprolol succinate 25 mg 25 mg PO QAM #90 tabs 12/04/22 03/08/25 Rx tablet,extended release 24 hr (Toprol XL) clopidogrel 75 mg tablet 75 mg PO DAILY #1 tablet 03/08/23 03/08/25 Rx lansoprazole 15 mg capsule,delayed 15 mg PO DAILY 03/09/23 03/08/25 History release amlodipine 10 mg tablet 10 mg PO DAILY #90 tabs 09/20/24 03/08/25 Rx metformin 1,000 mg tablet 500 mg (1/2 x 1,000 mg) PO 11/09/24 03/08/25 Rx BIDWMEAL #180 tabs lisinopril 20 mg tablet See Rx Instructions .Route 02/20/25 03/08/25 Rx .COMPLEX #180 tabs Allergies Allergy/AdvReac Type Severity Reaction Status Date / Time No Known Allergies Allergy Verified 03/08/25 10:34 Exam Const: General: cooperative, comfortable and no acute distress Resp: Auscultation: clear to auscultation bilaterally Cardio: Rate: regular rate Rhythm: regular rhythm GI: Inspection: normal to inspection and non-distended GI Palp: Yes abdominal tenderness, Yes Soft to palpation and Yes Hernia present Other: incarcerated right inguinal hernia, moderate tenderness to palpation Assessment and Plan Assessment and plan (1) Incarcerated right inguinal hernia: Code(s): K40.30 - Unilateral inguinal hernia, with obstruction, without gangrene, not specified as recurrent Status: Acute Assessment and Plan: will set up for robotic assisted repair with mesh
--- NOTE | 2025-03-19 07:23 | WPDHPUPDATE1 ---
History and Physical Update Update Date/Time: 03/19/25 07:23 History and Physical has been reviewed, including an updated exam of the patient. There are NO changes in the patient's condition. Risks, benefits, and alternatives have been discussed and questions answered. Patient agrees to proceed with procedure.
[2025-03-19] MEDS: KETOROLAC 15 MG/ML VIAL (*BKC) IV PUSH (10:55)
[2025-03-19] MEDS: ACETAMINOPHEN 500 MG TABLET 1000 MG PO (10:55)
[2025-03-19] MEDS: LACTATED RINGERS 1,000 ML 30 ML IV CONT ×2 (10:55→12:55)
--- NOTE | 2025-03-19 11:24 | P.PNAN_ITS ---
Anes - Initial Pre Proc Eval Procedure: Operation Date: 03/19/25 12:30 Proposed Procedures p Robotic Assisted Incarcerated Right Inguinal Hernia Repair, Possible Mesh - Emerald Pichardo MD Date/Time: 03/19/25 11:24 Surgeon: Emerald Pichardo MD Pre Op Diagnosis: Incarcerated Rt Ing Hernia Patient Data Age: 84 Gender: M Height: 1.68 m Weight: 87 kg Allergies Allergy/AdvReac Type Severity Reaction Status Date / Time No Known Allergies Allergy Verified 03/08/25 10:34 Home Medications ?Medication ?Instructions ?Recorded ?Confirmed ?Type atorvastatin 80 mg tablet 80 mg PO DAILY #90 tabs 12/04/22 03/08/25 Rx metoprolol succinate 25 mg 25 mg PO QAM #90 tabs 12/04/22 03/08/25 Rx tablet,extended release 24 hr (Toprol XL) clopidogrel 75 mg tablet 75 mg PO DAILY #1 tablet 03/08/23 03/08/25 Rx lansoprazole 15 mg capsule,delayed 15 mg PO DAILY 03/09/23 03/08/25 History release metformin 1,000 mg tablet 500 mg (1/2 x 1,000 mg) PO 11/09/24 03/08/25 Rx BIDWMEAL #180 tabs lisinopril 20 mg tablet See Rx Instructions .Route 02/20/25 03/08/25 Rx .COMPLEX #180 tabs amlodipine 10 mg tablet See Rx Instructions .Route 03/19/25 Rx .COMPLEX #90 tabs Laboratory Tests 03/19/25 11:02 POC Capillary Glucose 139 H mg/dl (65-105) Patient hx anesthesia problems: none Family hx anesthesia problems: none Results Review: All pre-operative results and documents have been reviewed as part of the pre- operative evaluation. ON LICENSE OF [facility] Past Medical History Medical History Hypertension GERD (gastroesophageal reflux disease) Arthritis BMI 32.0-32.9,adult Heart attack Hx of blood clots SOB (shortness of breath) Deep vein thrombophlebitis of lower leg Body mass index (bmi) 29.0-29.9, adult Diabetes type 2, controlled Nephrolithiasis Deep vein thrombosis Surgical History Surgical History History of coronary artery stent placement 11/2022 Family History Family History Sibling Acute myocardial infarction Family history of malignant neoplasm Patient's brother is in good health Father Family history unknown Mother Family history unknown Other Acute myocardial infarction Social History Social History Smoking packs per day: 1 Smoking cigarettes per day: 20.0 Years smoked: 20 Smoking pack-years: 20.00 Smoking status: Former smoker Tobacco type: cigarettes Second hand tobacco smoke exposure: No Smoking end date: 08/02/77 Alcohol intake: never Substance use: never Substance use type: does not use Do You Feel Safe in your Home?: Yes Lack of Transportation: No Lack of Food: Never True Current Housing: I Have Housing Concerned About Future Housing: No Difficulty Paying Gas/Electric Bills: No Difficulty Paying for Meds: No Currently Unemployed: No Education: High School Diploma/GED Difficulty w/ Childcare or Family Care: No Living arrangements: with family Additional living arrangements comments: w Daughter Deb Avila Occupation/Education: retired Additional occupation/education comments: [employer] Gender identity (if verbalized by the patient): Male Spiritual care concerns: No Anes - Eval Final PreProcedure Day of Procedure 03/19/25 11:24 Patient weight: normal Heart: regular rate and rhythm Lungs: clear to auscultation Airway: Mallampati scale class II Neurological: alert and oriented Last oral intake: >/= 8 hours ASA classification: III Emergent: no Anesthetic plan: proceed Anesthesia type and monitoring: general ETT and standard monitoring Results Review: All pre-operative results and documents have been reviewed as part of the pre- operative evaluation. Informed Consent: The patient's anesthetic plan and its attendant risks and benefits were discussed with the patient/family/POA. Questions were solicited and answers provided to the satisfaction of the patient/family/POA.
[2025-03-19] MEDS: ceFAZolin 2 GM in SODIUM CHLORIDE 0.9% IV 50 ML 100 ML IVPB (11:43)
[2025-03-19] MEDS: BUPIVACAINE/EPINEPHRINE 0.5% 30 ML VIAL INFILTRATE (12:17)
--- NOTE | 2025-03-19 12:53 | W.PM.PROC2 ---
Procedure Note - Detailed Date of Procedure 03/19/25 Pre-op Diagnosis Incarcerated Rt Ing Hernia Post-op Diagnosis Same Procedure Performed robotic assisted repair of incarcerated right inguinal hernia with mesh Surgeon Emerald Pichardo MD Anesthesia General and Local Indications 84-year-old male presenting to the office with an incarcerated right inguinal hernia. This was confirmed via CT scan. Findings Incarcerated indirect right inguinal hernia, sigmoid colon noted within the hernia easily reduced no pathology Description of Procedure Patient was brought into the operating room and placed in the supine position. After adequate induction of general anesthesia, the patient was prepped and draped in normal sterile fashion. A time-out was then done to verify the patient's identity, as well as the procedure being performed. I began by making a 8 mm incision in the supraumbilical region, a Veress needle was then placed into the peritoneal cavity. CO2 gas was then insufflated and after adequate pneumoperitoneum was achieved, the Veress needle was removed. I then placed an 8 mm trocar through this incision. I then placed the endoscope through this trocar site and under direct visualization placed 2 further 8 mm ports in the right and left mid abdomen. The [employer] robot was then docked to the 3 trocar sites. I then scrubbed out and went to the robotic console. Upon examining the pelvis, it was noted that the patient had a large, incarcerated right inguinal hernia. The left side was examined and no hernia defect was noted. I reduced the contents of the right inguinal hernia which was noted to contain a portion of sigmoid colon. This was easily reduced with gentle traction. The reduced colon looked to be completely unremarkable and pathology free. I began by making a preperitoneal flap approximately 6 cm superior to the defect. This flap was carried medially past the umbilical ligaments in laterally to the transversalis. It then began dissection of my medial compartment taking this down to the pubic tubercle. I then began the lateral dissection taking this down to the transversalis fascia. Once these compartments were achieved, I began dissection around the cord structures. A large indirect hernia was noted at this point. Using careful dissection, was able to reduce indirect hernia sac off the cord structures. A large lipoma of the cord was also reduced at this point. Once this was adequately done, I went ahead and placed a large piece of 3D Max mesh into the abdominal cavity. The mesh was carefully positioned, centering the center of the mesh over the indirect defect. Once this was done, was very satisfied with our repair. Using 3-0 Vicryl sutures, I tacked the mesh medially to Daniel's ligament. Two lateral sutures were placed from the mesh to the transversalis fascia. I then closed the peritoneal flap with a running 2.0 V Lock suture. The abdomen was then desufflated, and all ports were removed. All incisions were then closed with the 4.0 monocryl suture. Dermabond was placed on each wound. The patient tolerated the procedure well, was extubated in the operating room postoperatively, and will now be transferred to the recovery room in stable condition. Implants large 3DMax mesh Estimated Blood Loss 10 Drains No Packing No Pathology None sent Complications No immediate complications Condition Stable Disposition PACU [facility] Billing Surgery - Charge Forward: Surgery Billing
[2025-03-19] MEDS: fentaNYL CITRATE INJ (*CRX) 100 MCG/2 ML VIAL 25 MCG IV PUSH ×3 (13:23→13:37)
[2025-03-19] MEDS: oxyCODONE HCL (*CRX) 5 MG TAB IR PO (14:20)
== END 2025-03-19 17:28 | disposition home or self-care (01) ==
PROVIDERS: PCP Nurse Practitioner; Visit Provider Surgery
PROC: 8E0Y4CZ Robotic Assisted Procedure of Lower Extremity, Percutaneous Endoscopic Approach (ICD-10-PCS; CPT 49650; principal; 2025-03-19 12:30)
DX: K40.90 Unilateral inguinal hernia, without obstruction or gangrene, not specified as recurrent (principal); I10 Essential (primary) hypertension; K21.9 Gastro-esophageal reflux disease without esophagitis; E11.9 Type 2 diabetes mellitus without complications; I25.2 Old myocardial infarction; M19.90 Unspecified osteoarthritis, unspecified site; Z79.02 Long term (current) use of antithrombotics/antiplatelets; Z79.84 Long term (current) use of oral hypoglycemic drugs; Z95.5 Presence of coronary angioplasty implant and graft; Z87.891 Personal history of nicotine dependence; Z87.442 Personal history of urinary calculi; Z86.718 Personal history of other venous thrombosis and embolism; Z80.9 Family history of malignant neoplasm, unspecified; Z82.49 Family history of ischemic heart disease and other diseases of the circulatory system
CPT/HCPCS: 49650; S2900; 82948; J0690; A9270; C1781; J1100; J1885; J2003; J2405; J2704; J3010; J7120

== ENCOUNTER 2025-06-01 12:48 | Outpatient (CLI) | payer OTHER, SELFPAY ==
--- NOTE | ~2025-06-01 | XR_ITS ---
EXAMINATION: XR scapula LT, 06/01/2025 12:54 CDT HISTORY: M89.8X1 - Other specified disorders of bone, shoulder COMPARISON: No comparisons available. Findings: No acute fracture or malalignment. No significant degenerative changes. Soft tissues unremarkable. Impression: No acute fracture or malalignment. Reviewed, dictated and finalized at location P. Impression: No acute fracture or malalignment.
== END 2025-06-01 12:49 | disposition home or self-care (01) ==
LOC: MICIMG 12:50
PROVIDERS: PCP Nurse Practitioner; Visit Provider Nurse Practitioner
DX: M89.8X1 Other specified disorders of bone, shoulder (principal)
CPT/HCPCS: 73010

== ENCOUNTER 2025-07-23 10:18 | Outpatient (CLI) | payer OTHER, SELFPAY ==
--- NOTE | ~2025-07-23 | XR_ITS ---
XR shoulder LT min 2V 07/23/2025 10:42 Indication: Left shoulder pain Procedure: 5 views left shoulder Comparison: 06/01/2025 Findings: There is a left apical mass with destruction of the left third rib posteriorly. No acute abnormality of the shoulder itself. No foreign bodies. Impression: 1: Left apical pleural-based mass with chest wall invasion and destruction of the left third rib, consistent with primary bronchogenic carcinoma until proven otherwise. Recommend correlation with CT chest. Reviewed, dictated and finalized at location O. CLEANING MACHINE OPERATOR Impression: 1: Left apical pleural-based mass with chest wall invasion and destruction of t he left third rib, consistent with primary bronchogenic carcinoma until proven otherwise. Recommend correlation with CT chest.
--- OUTSIDE RECORDS SUMMARY | 2025-07-23 11:52 | XMS_ITS | Clinical Summary ---
Author Organization [facility] Address [address] [place] [address] Care Team Providers Care Dean Name Role Phone Gaetano Wood MD Primary Care Provider [phone] Allergies No known active allergies Medications atorvastatin [...] Comments Blood Pressure 107/54 09/13/2023 2:41 PM [employer] Pulse 75 09/13/2023 2:41 PM [employer] Temperature 35.8 C (96.5 F) 09/13/2023 2:41 PM [employer] Respiratory Rate 14 09/13/2023 2:41 PM [employer] Oxygen Saturation 95% 09/13/2023 2:41 PM [employer] Inhaled Oxygen Concentration - - Weight 88.9 kg (196 lb) 09/13/2023 2:41 PM [employer] Height 165.1 cm (5' 5) 01/21/2023 2:54 [...] series) 2013 INFLUENZA VACCINE (#1) 2025 Insurance [facility] [place] Address: [place] [address] Care Teams Dean Relationship Specialty Start Date End Date Gaetano Wood MD PCP - General Family Practice 01/21/23
== END 2025-07-23 10:19 | disposition home or self-care (01) ==
PROVIDERS: PCP Nurse Practitioner; Visit Provider Physician Assistant Surgical
DX: R52 Pain, unspecified (principal)
CPT/HCPCS: 73030